=== PATIENT | female | born 1985 | race Caucasian/White ===

== ENCOUNTER 2021-01-11 20:19 | Emergency (ER) | payer OTHER ==
--- OUTSIDE RECORDS SUMMARY | 2021-01-11 20:23 | XMS REPORT | Continuity of Care Document ---
:1985 Author Organization [facility] t Address [address] [place] [address] Care Team Providers Name Role Phone FER Attending Clinician Unavailable DO VITOR MONROE Attending Clinician Unavailable DO VITOR MONROE Admitting Clinician Unavailable Problems This patient has no known problems. Allergies, Adverse Reactions, Alerts This patient has no known allergies or adverse reactions. Medications This patient has no known medications. Procedures This patient has no known procedures. Encounters Start End Encounter Admission Attending Care Care Encounter Source Date/Time Date/Time Type Type Clinicians Facility Department ID 2020-06-30 2020-07-04 Emergency [facility] 064 [id number] 64 [place] 00:00:00 00:00:00 [facility] [address] Results Test Description Test Time Test Comments Results Result Comments Source SARS-CoV-2 (COVID-19) RNA [Presence] in Respiratory sp ecimen by 2020-07-01 01:50:16 LIBAN with probe detection Test Item Value Reference Range Interpretation Comme nts SARS-CoV-2 (COVID-19) RNA [Presence] in Respiratory Not detected No t-Detected specimen by LIBAN with probe detection (test code = 22138-5) Whether patient is employed in a healthcare setting (test code = 64882-7) Whether the patient has symptoms related to condition of interest (test code = 85568-9) Patient was hospitalized because of this condition (test code = 01306-4) Whether the patient was admitted to intensive care unit (ICU) for condition of interest (test code = 35613-7) Whether patient resides in a congregate care setting (test code = 15114-1)
[2021-01-11 21:08] LABS: Absolute Lymphocytes (CBC) 0.9 K/uL (0.7-4.9); Basophils % 0.4 % (0-1.3); Hematocrit 47.6 % (36.0-45.0); Lymphocytes % 10.7 % (15.3-44.8); MPV 10.3 fL (7.6-11.3); RBC Red Blood Cell Count 5.63 M/uL (3.86-4.86)
[2021-01-11 21:21] LABS: Albumin 4.2 g/dL (3.4-5.0); Bilirubin Direct 0.2 mg/dL (0-0.2); Bilirubin Total 0.5 mg/dL (0.2-1.0); Potassium 3.8 mmol/L (3.5-5.1); Protein, Total 7.5 g/dL (6.4-8.2)
[2021-01-11] MEDS ORDERED: ONDANSETRON 4 MG/2 ML VIAL ONE ×2 (21:21→23:38)
[2021-01-11] MEDS ORDERED: MORPHINE 4 MG/ML SYR ONE (21:21)
[2021-01-11] MEDS ORDERED: NA CHLORIDE 0.9% 1,000 ML ONE (21:21)
[2021-01-11 22:38] LABS: Urine Blood Negative (Negative); Urine Glucose Negative (Negative); Urine Protein Negative (Negative); Urine Specific Gravity >=1.030 (1.005-1.030); Urine pH 5.5 (5.0-7.0)
[2021-01-11 22:40] LABS: Urine Specific Gravity/Preg >1.030 (1.005-1.030)
[2021-01-11 22:57] LABS: Urine Bacteria >50 /HPF (<20); Urine Mucus HEAVY /HPF (NONE SEEN); Urine RBC <5 /HPF (NONE SEEN)
[2021-01-11] MEDS ORDERED: CEFTRIAXONE 1000 MG/VIAL ONE (23:29)
[2021-01-11] MEDS ORDERED: FENTANYL CITR 100 MCG/2 ML ONE (23:38)
--- NOTE | 2021-01-12 00:08 | EDPHYS ---
Physician Documentation [facility] Name: Marta Perez Age: 35 yrs Sex: Female : 1985 Arrival Date: 01/11/2021 Time: 20:26 Bed 20 Private MD: ED Physician Sher Mcclendon HPI: 01/11 22:59 This 35 yrs old Female presents to ER via Wheelchair with complaints of Inability To kb Void. 22:59 The patient presents with abdominal pain that is diffuse. Onset: The symptoms/episode kb began/occurred 3 week(s) ago. The symptoms do not radiate. Associated signs and symptoms: Pertinent positives: nausea and vomiting, decreased urination, Pertinent negatives: fever. The symptoms are described as intermittent. Modifying factors: The symptoms are alleviated by nothing, the symptoms are aggravated by nothing. Severity of pain: At its worst the pain was moderate in the emergency department the pain is unchanged. The patient has not experienced similar symptoms in the past. The patient has not recently seen a physician. Pt reports she developed left flank pain 3 weeks ago that has been intermittent with abd pain. States she has had nausea and vomiting for 2 days and now gets dizzy when she stands. unable to tolerate po intake. Decreased urination. 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 - Social history:: Smoking status: Patient/guardian denies using tobacco. ROS: 22:58 Constitutional: Negative for fever, chills, and weight loss. kb 22:58 Abdomen/GI: Positive for abdominal pain, nausea and vomiting, Negative for diarrhea. 22:58 Back: Positive for flank pain, on the left. 22:58 : Positive for small amounts. 22:58 All other systems are negative. Exam: 22:58 Constitutional: This is a well developed, well nourished patient who is awake, alert, kb and in no acute distress. Head/Face: Normocephalic, atraumatic. ENT: Moist Mucous membranes Respiratory: Respirations even and unlabored. No increased work of breathing, no retractions or nasal flaring. Skin: Warm, dry with normal turgor. Normal color. MS/ Extremity: Pulses equal, no cyanosis. Neurovascular intact. Full, normal range of motion. Neuro: Awake and alert, GCS 15, oriented to person, place, time, and situation. Moves all extremities. Normal gait. Psych: Awake, alert, with orientation to person, place and time. Behavior, mood, and affect are within normal limits. 22:58 Abdomen/GI: Inspection: abdomen appears normal, Bowel sounds: normal, in all quadrants, Palpation: soft, in all quadrants, mild abdominal tenderness, in all quadrants. 22:58 Back: CVA tenderness, that is moderate, is noted on the left. Vital Signs: 20:29 Pulse 105; Resp 18; Temp 97.0; Pulse Ox 100% on R/A; Weight 56.7 kg (R); Height 5 ft. 0 aj1 in. (152.40 cm) (R); Pain 10/10; 21:07 BP 123 / 91 Supine; Pulse 82; Resp 18 S; Pulse Ox 99% on R/A; cc4 21:10 BP 132 / 104 Sitting; Pulse 111; Resp 22 S; Pulse Ox 99% on R/A; cc4 21:12 BP 101 / 89 Standing; Pulse 109; Resp 20 S; Pulse Ox 99% on R/A; cc4 21:45 BP 125 / 95; Pulse 70; Resp 20 S; Pulse Ox 100% on R/A; cc4 23:15 BP 124 / 79; Pulse 81; Resp 18 S; Pulse Ox 100% on R/A; cc4 01/12 00:15 BP 109 / 83; Pulse 87; Resp 18 S; Temp 98.2(O); Pulse Ox 98% on R/A; cc4 01/11 20:29 Body Mass Index 24.41 (56.70 kg, 152.40 cm) aj1 MDM: 01/11 20:38 Patient medically screened. kb 22:58 Data reviewed: vital signs, nurses notes. Data interpreted: Pulse oximetry: on room air kb is 99 %. Interpretation: normal. 01/12 00:06 Counseling: I had a detailed discussion with the patient and/or guardian regarding: the kb historical points, exam findings, and any diagnostic results supporting the discharge/admit diagnosis, lab results, radiology results, the need for outpatient follow up, a family practitioner, to return to the emergency department if symptoms worsen or persist or if there are any questions or concerns that arise at home. 01/11 20:38 Order name: Basic Metabolic Panel 01/11 20:38 Order name: CBC with Diff; Complete Time: 21:24 kb 01/11 20:38 Order name: Hepatic Function; Complete Time: 21:24 kb 01/11 20:38 Order name: Lipase; Complete Time: 21:24 kb 01/11 20:38 Order name: Basic Metabolic Panel; Complete Time: 21:24 EDCA 01/11 20:39 Order name: Urine Microscopic Only; Complete Time: 23:01 kb 01/11 21:01 Order name: CT Abd/Pelvis - IV Contrast Only 01/11 22:37 Order name: Urine Dipstick-Ancillary; Complete Time: 22:40 EDCA 01/11 22:38 Order name: Urine --Ancillary (enter results) 2 01/11 22:38 Order name: Urine --Ancillary; Complete Time: 22:51 EDMS 01/11 22:58 Order name: Urine Culture [facility] 01/11 20:38 Order name: IV Saline Lock; Complete Time: 20:59 kb 01/11 20:38 Order name: Labs collected and sent; Complete Time: 20:59 kb 01/11 20:39 Order name: Urine Dipstick-Ancillary (obtain specimen); Complete Time: 22:37 kb 01/11 20:39 Order name: Urine Test (obtain specimen); Complete Time: 22:37 kb 01/11 20:39 Order name: Orthostatics; Complete Time: 21:16 kb 01/12 00:05 Order name: PO challenge; Complete Time: 00:06 kb Administered Medications: 01/11 21:26 Drug: NS 0.9% 1000 ml Route: IV; Rate: 1000 ml; Site: right antecubital; cc4 23:35 Follow up: IV Status: Completed infusion; IV Intake: 1000ml cc4 :26 Drug: Zofran (Ondansetron) 4 mg Route: IVP; Site: right antecubital; cc4 22:00 Follow up: Response: No adverse reaction; Nausea is decreased cc4 21:28 Drug: morphine 4 mg Route: IVP; Site: right antecubital; cc4 22:00 Follow up: Response: No adverse reaction; Pain is decreased cc4 23:35 Drug: Rocephin (cefTRIAXone) 1 grams Route: IV; Rate: calculated rate; Site: right cc4 antecubital; 01/12 00:00 Follow up: Response: No adverse reaction cc4 01/11 23:45 Drug: fentaNYL (PF) 25 mcg Route: IVP; Site: right antecubital; cc4 01/12 00:20 Follow up: Response: No adverse reaction; Pain is decreased cc4 01/11 23:45 Drug: Zofran (Ondansetron) 4 mg Route: IVP; Site: right antecubital; cc4 01/12 00:20 Follow up: Response: No adverse reaction; Nausea is decreased cc4 Disposition: 02:25 Co-signature as Attending Physician, Sher Mcclendon MD. [facility] Disposition Summary: 01/12/21 00:06 Discharge Ordered Location: Home kb Condition: Stable kb Diagnosis - Other ovarian cysts kb - UTI/ Urinary tract infection, site not specified kb - Constipation kb Followup: kb - With: Emergency Department - When: As needed - Reason: Worsening of condition Followup: kb - With: Private Physician - When: 2 - 3 days - Reason: Recheck today's complaints, Continuance of care, Re-evaluation by your physician Discharge Instructions: - Discharge Summary Sheet kb - Constipation, Adult, [id number]-[id number] kb - Urinary Tract Infection, Adult, [id number] kb - Ovarian Cyst, [id number] kb Forms: - Medication Reconciliation Form kb - Thank You Letter kb - Antibiotic Education kb - Prescription Opioid Use kb Prescriptions: - Augmentin 875-125 mg Oral Tablet - take 1 tablet by ORAL route every 12 hours for 10 days; 20 tablet; Refills: 0, kb Product Selection Permitted - Zofran 4 mg Oral Tablet - take 1 tablet by ORAL route every 6 hours As needed; 20 tablet; Refills: 0, kb Product Selection Permitted Signatures: Dispatcher [employer] Valeria England FNP-C FNP-Violet Wylie RN RN 1 Sher Mcclendon MD MD 7 Nikolai, Daniella, RN RN cc4
--- NOTE | 2021-01-12 00:08 | ER ---
Nurse's Notes [facility] Name: Marta Perez Age: 35 yrs Sex: Female : 1985 Arrival Date: 01/11/2021 Time: 20: Bed 20 Private MD: Diagnosis: Other ovarian cysts;UTI/ Urinary tract infection, site not specified;Constipation Presentation: 01/11 20:29 Chief complaint: Patient states: "I've been to the emergency room twice recently, I've aj1 been diagnosed with kidney stones and cysts on my ovaries, but now I'm not peeing very much, and I'm dizzy and I'm vomiting." Patient also reports lower abdominal pain. Denies fever. Coronavirus screen: Vaccine status: Patient reports being unvaccinated. Ebola Screen: Patient denies travel to an Ebola-affected area in the 21 days before illness onset. Initial Sepsis Screen: Does the patient meet any 2 criteria? HR > 90 bpm. No. Patient's initial sepsis screen is negative. Does the patient have a suspected source of infection? Yes: Acute abdominal pain. Risk Assessment: Do you want to hurt yourself or someone else? Patient reports no desire to harm self or others. Onset of symptoms was 2020. 20:29 Method Of Arrival: Wheelchair aj1 20:29 Acuity: SANDRA 3 aj1 Triage Assessment: 20:38 General: Appears in no apparent distress. uncomfortable, Behavior is calm, cooperative, aj1 appropriate for age. Pain: Complains of pain in right lower quadrant and left lower quadrant Pain currently is 10 out of 10 on a pain scale. Neuro: Level of Consciousness is awake, alert, obeys commands, Oriented to person, place, time, situation. Cardiovascular: Patient's skin is warm and dry. Respiratory: Airway is patent Respiratory effort is even, unlabored, Respiratory pattern is regular, symmetrical. 01/12 00:20 General: Appears. cc4 02:09 General: Behavior is. 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 - Social history:: Smoking status: Patient/guardian denies using tobacco. Screenin:30 Abuse screen: Denies threats or abuse. Nutritional screening: No deficits noted. cc4 Tuberculosis screening: No symptoms or risk factors identified. Fall Risk None identified. Assessment: 20:30 General: Appears distressed, uncomfortable, Behavior is cooperative, anxious. Pain: cc4 Complains of pain in abdomen and left lower quadrant and right lower quadrant. Neuro: No deficits noted. Level of Consciousness is awake, alert, obeys commands, Oriented to person, place, time, situation. Cardiovascular: Denies chest pain. Respiratory: No deficits noted. Airway is patent Respiratory effort is even, unlabored, Respiratory pattern is regular, symmetrical. GI: Abdomen is flat, non-distended, Bowel sounds present X 4 quads. Abd is soft X 4 quads Abdomen is tender to palpation in right lower quadrant and left lower quadrant Reports intolerance of fluids, intolerance of food, nausea. : Reports inability to void, since 01/11/2021. EENT: No signs and/or symptoms were reported regarding the EENT system. Derm: No deficits noted. Skin is intact, is healthy with good turgor. Musculoskeletal: No deficits noted. Capillary refill < 3 seconds, Range of motion: intact in all extremities, Geraldine Horn NP in to see with orders recieved. 20:30 Pain: Pain currently is 10 out of 10 on a pain scale. cc4 20:55 Reassessment: No changes from previously documented assessment. # 20 g angiocath cc4 inserted right AC x 1 attempt \\T\\ converted to saline lock with blood drawn drawn \\T\\ sent to lab; reports inability to void. 21:07 Reassessment: Orthostatics vitals obtained with Geraldine Horn NP notified. cc4 21:26 Reassessment: No changes from previously documented assessment. IV NS hung to right AC cc4 saline lock \\T\\ infusing \\T\\ bolus rate with no s/sx's of infiltration; Zofran 4 mg \\T\\ Morphine 4 mg give slow IVP as ordered for nausea \\T\\ pain. 22:00 Reassessment: Reports decreasing pain to 5/10 on pain scale; reports little change in cc4 nausea; encouraged to obtain urine specimen with pt reporting that she can't go at present time. 22:40 Reassessment: Urine specimen obtained \\T\\ sent to lab with dipstick done \\T\\ negative HCG; cc 4 CT notified. 22:45 Reassessment: To CT via stretcher. cc4 23:00 Reassessment: Returned from CT via stretcher. cc4 23:35 Reassessment: Rocephin 1 g given slow IVP; c/o increasing pain \\T\\ nausea with K. cc4 GILDA Horn notified. 23:45 Reassessment: Reports abd. pain 9/10 on pain scale with c/o nausea; Fentanyl 25 mcg \\T\\ cc4 Zofran 4 mg given slow IVP as ordered. 01/12 00:20 Reassessment: Patient states feeling better. Patient states symptoms have improved. cc4 Vital Signs: 01/11 20:29 Pulse 105; Resp 18; Temp 97.0; Pulse Ox 100% on R/A; Weight 56.7 kg (R); Height 5 ft. 0 aj1 in. (152.40 cm) (R); Pain 10/10; 21:07 BP 123 / 91 Supine; Pulse 82; Resp 18 S; Pulse Ox 99% on R/A; cc4 21:10 BP 132 / 104 Sitting; Pulse 111; Resp 22 S; Pulse Ox 99% on R/A; cc4 21:12 BP 101 / 89 Standing; Pulse 109; Resp 20 S; Pulse Ox 99% on R/A; cc4 21:45 BP 125 / 95; Pulse 70; Resp 20 S; Pulse Ox 100% on R/A; cc4 23:15 BP 124 / 79; Pulse 81; Resp 18 S; Pulse Ox 100% on R/A; cc4 01/12 00:15 BP 109 / 83; Pulse 87; Resp 18 S; Temp 98.2(O); Pulse Ox 98% on R/A; cc4 01/11 20:29 Body Mass Index 24.41 (56.70 kg, 152.40 cm) [facility] ED Course: 01/11 20:26 Patient arrived in ED. wm 20:30 Bed in low position. Call light in reach. Side rails up X 1. cc4 20:32 Valeria Horn F[facility]-C [facility]. kb 20:32 Sher Mcclendon MD is Attending Physician. kb 20:33 Triage completed. aj1 20:38 Arm band placed on Patient placed in an exam room. aj1 20:58 Inserted saline lock: 20 gauge in right antecubital area, using aseptic technique. oe Blood collected. 21:08 Daniella Menchaca, RN is Primary Nurse. cc4 21:08 CT Abd/Pelvis - IV Contrast Only Sent. cc4 21:08 Basic Metabolic Panel Sent. cc4 21:08 CBC with Diff Sent. cc4 21:09 Hepatic Function Sent. cc4 21:09 Lipase Sent. cc4 21:09 Basic Metabolic Panel Sent. cc4 22:37 Urine Microscopic Only Sent. cc4 23:02 CT Abd/Pelvis - IV Contrast Only In Process Unspecified. EDMS 23:27 Urine Culture Sent. cc4 01/12 00:19 Urine --Ancillary (enter results) Sent. cc4 00:20 No provider procedures requiring assistance completed. cc4 00:20 IV discontinued, intact, bleeding controlled, No redness/swelling at site. Pressure cc4 dressing applied. Administered Medications: 01/11 21:26 Drug: NS 0.9% 1000 ml Route: IV; Rate: 1000 ml; Site: right antecubital; cc4 23:35 Follow up: IV Status: Completed infusion; IV Intake: 1000ml cc4 21:26 Drug: Zofran (Ondansetron) 4 mg Route: IVP; Site: right antecubital; cc4 22:00 Follow up: Response: No adverse reaction; Nausea is decreased cc4 21:28 Drug: morphine 4 mg Route: IVP; Site: right antecubital; cc4 22:00 Follow up: Response: No adverse reaction; Pain is decreased cc4 23:35 Drug: Rocephin (cefTRIAXone) 1 grams Route: IV; Rate: calculated rate; Site: right cc4 antecubital; 01/12 00:00 Follow up: Response: No adverse reaction cc4 01/11 23:45 Drug: fentaNYL (PF) 25 mcg Route: IVP; Site: right antecubital; cc4 01/12 00:20 Follow up: Response: No adverse reaction; Pain is decreased cc4 01/11 23:45 Drug: Zofran (Ondansetron) 4 mg Route: IVP; Site: right antecubital; cc4 01/12 00:20 Follow up: Response: No adverse reaction; Nausea is decreased cc4 Intake: 01/11 23:35 IV: 1000ml; Total: 1000ml. cc4 Outcome: 01/12 00:06 Discharge ordered by . trever 00:20 Discharged to home ambulatory. cc4 00:20 Condition: improved 00:20 Discharge instructions given to patient, Instructed on discharge instructions, follow up and referral plans. medication usage, Demonstrated understanding of instructions, follow-up care, medications. 00:49 Patient left the ED. cc4 Signatures: Dispatcher [employer] EDMS Valeria Horn, JANA-C PARENT EDUCATOR-Violet Wylie RN RN aj1 Raf Dempsey Wendy wm Cooper, Christie, RN RN cc4 Corrections: (The following items were deleted from the chart) 01:01/11 20:30 General: Appears distressed, uncomfortable, Behavior is cooperative, cc4 anxious, cc4
[2021-01-12 01:04] VITALS: TEMP 97
[2021-01-12 01:09] VITALS: O2SAT 99
[2021-01-12 01:12] VITALS: BP 101/89
--- NOTE | 2021-01-12 15:29 | RAD REPORT ---
EXAM DESCRIPTION: CT - Abdomen Pelvis W Contrast - 01/12/2021 3:32 am CLINICAL HISTORY: 35 years, Female, ABD PAIN COMPARISON: None. TECHNIQUE: Contrast-enhanced images of the abdomen and pelvis were performed utilizing 5 mm slice th ickness at 5 mm interval reconstruction from the lung bases to the ischial tuberosities after the adm inistration of IV contrast. In addition multiplanar reformats in the coronal and sagittal plane were obtained and reviewed. This exam was performed according to our departmental dose-optimization protocol, which includes auto mated exposure control, adjustment of the mA and/or kV according to patient size and/or use of iterat sami reconstruction technique. FINDINGS: The lung bases demonstrate to be clear. The liver demonstrate decreased attenuation corresponding to mild fatty infiltration. Otherwise liver , gallbladder, pancreas, spleen and adrenal glands demonstrate to be unremarkable, no focal lesions a re noted. The kidneys demonstrate normal uptake of contrast media. No evidence for nephrolithiasis and/or hydro nephrosis. Grossly the unopacified stomach, small bowel and large bowel demonstrate to be within normal limits. There is no evidence for bowel dilatation/or free air. Fecal residue throughout the large bowel rebecca ecially within the rectum suggest constipation/impaction. The appendix is normal. The urinary bladder demonstrate to be unremarkable. The uterus is unremarkable. There is a left adn exal cystic structure measuring 3.1 x 2.5 cm on axial image 67/91. The aorta demonstrate to be norm al. There is no retroperitoneal lymphadenopathy. There is no evidence for ascites. The rest of the soft tissue and bony structures are within normal limits. IMPRESSION: Fecal residue throughout the large bowel especially within the rectum suggest constipati on/impaction. 3.1 x 2.5 cm left adnexal cystic structure. Mild fatty infiltration of the liver. Electronically signed by: Anurag Rico MD 01/11/2021 11:21 PM WEB CONTENT WRITER Due to temporary technical issues with the PACS/Fluency reporting system, reports are being signed by the in house radiologists without review as a courtesy to insure prompt reporting. The interpreting radiologist is fully responsible for the content of the report.
== END 2021-01-12 00:49 | disposition home or self-care (01) ==
LOC: ER 20:19
DX: N39.0 Urinary tract infection, site not specified (principal); N83.299 Other ovarian cyst, unspecified side; K59.00 Constipation, unspecified
CPT/HCPCS: 96361; 87088; 85025; 87086; 80048; 36415; 81025; 80076; 83690; 74177; 96375; 96374; 99284; Q9967; J3010; J7030; J2405 ×2; 81003; 81015

== ENCOUNTER 2021-11-07 23:05 | Emergency (ER) | payer OTHER, SELFPAY ==
--- OUTSIDE RECORDS SUMMARY | 2021-11-07 23:07 | XMS REPORT | Continuity of Care Document ---
:1985 Author Organization [facility] t Address [address] [place] [address] Care Team Providers Name Role Phone Baeza Bobby LORA Primary Care Physician DINA_PASHACBMANSI_Gayle_RA Attending Clinician Unavailable KODY MONROE Attending Clinician Unavailable DO KODY MONROE Attending Clinician Unavailable JEREMICBMANSI_Gayle_RA Admitting Clinician Unavailable DO KODY MONROE Admitting Clinician Unavailable Payers Payer Name Policy Type Policy Number Effective Date Expiration Date [facility] [id number] 2020 00:00:00 Problems Condition Condition Condition Status Onset Resolution Last Treating Co mments Source Name Details Category Date Date Treatment Clinician Date Kidney Kidney Disease Active 2015-02 [facility] 00 l Left Left Disease Active [facility] ureteral ureteral [facility] 00 l Generalize Generaliz Problem Active 2019-05-14 [facility] d anxiety ed anxiety 02:45:44 l disorder disorder Kyle n Active Problem 05/14/2019 [facility] Auditory Auditory Problem Active 2019-05-14 [facility] hallucinat hallucinat 02:45:44 l ion ion Active Kyle n Problem 05/14/2019 [facility] Allergies, Adverse Reactions, Alerts This patient has no known allergies or adverse reactions. Family History Family Member Diagnosis Comments Start Date Stop Date Source Natural father Cancer [facility] Natural mother No Known Problems Met [facility] Social History Social Habit Start Date Stop Date Quantity Comments Source History [facility] History of Current smoker [facility] History [facility] Drinks Alcohol intake 2020-06-30 2020-06-30 Current [facility] 00:00:00 00:00:00 non-drinker of Hospital alcohol (finding) History SDIN 2019-03-08 2019-03-08 1 [facility] Frequency 00:00:00 00:00:00 Hospita l Tobacco use and 2019-03-07 2019-03-07 Smokeless tobacco [facility] exposure 00[facility]00:00 00:00:00 non-user Hospital Sex Assigned At [birth year] [facility] Smoking Status Start Date Stop Date Source Ex-smoker 2019-03-07 00:00:00 2019-03-07 [facility] Medications Ordered Filled Start Stop Current Ordering Indication Dosage Frequency Signature Comments Components Source Medication Medication Date Date Medication? Clinician (SIG) Name Name Lexapro Yes Van Baeza 1 tab(s) Me moria 2-06 l 03:45: Xanax 2017-02 Yes Van Baeza 1 tab(s) Crow darinel 2-31 l 00:00: Zyprexa Yes Van Baeza 1 tab(s) Me moria 9-06 l 00:00: PNV 2015-02 Yes 1{tbl} QD Take 1 [facility] [id number]-i 1-07 tablet by jamie bender 09:37: mouth Hospi ta l-FA 29 mg 18 daily. l iron- 1 mg tablet per tablet sertraline 2015-02 Yes [facility] (ZOLOFT) 50 0-27 st MG tablet 00:00: Hospita 00 l ibuprofen 2015-02 Yes TK 1 T PO Met [facility] (ADVIL,MOTR 0-[address] IN) 800 MG 00:00: Hospita tablet 00 l escitalopra Yes TK 1 T PO M ethodi m (LEXAPRO) 9-[address] 10 MG 00:00: Hospita tablet 00 l HYDROcodone Yes TK 1 T PO M [facility]i -acetaminop 8-05 Q [address] hen (NORCO) 00:00: PRN P Hospi ta 5-325 mg 00 l per tablet tamsulosin Yes [facility] (FLOMAX) 08-28 st 0.4 mg 00:00: Hospita capsule,ext 00 l ended release 24hr GENERLAC 10 Yes [facility] gram/[address] solution 00:00: Hospita 00 l Procedures This patient has no known procedures. Plan of Care Planned Activity Planned Date Details Comments Source Future Scheduled 2021-10-17 HE[facility]ITIS B [facility] 07:10:57 VACCINES (1 of 3 - 3-dose series) [code = HEPATITIS B VACCINES (1 of 3 - 3-dose series)] Future Scheduled 2021-10-17 COVID-19 VACCINE [facility] Test 07:10:57 (#1) [code = COVID-19 VACCINE (#1)] Future Scheduled 2021-10-17 Hepatitis C [facility] Test 07:10:57 screening (procedure) [code = 822710839] Future Scheduled 2021-10-17 Screening for [facility] Test 07:10:57 malignant neoplasm of cervix (procedure) [code = 339125793] Future Scheduled 2021-10-17 INFLUENZA VACCINE [facility] Test 07:10:57 [code = INFLUENZA VACCINE] Encounters Start End Encounter Admission Attending Care Care Encounter Source Date/Time Date/Time Type Type Clinicians Facility Department ID 2021-11-07 Outpatient [id number] [facility] 23:07:28 [id number] [place] [id number] 2021-07-23 2021-07-23 Outpatient [id number] [id number] PRIV [id number] [facility] 03:23:00 03:23:00 jena_ [id number] Medica l 2020-06-30 2020-07-04 Emergency [place] [id number] [place] 00:00:00 00:00:[address] [id number] 2019-03-08 2019-03-08 Outpatient [facility] [id number] [facility] 08:37:00 08:37:00 [facility] [place] 2019-03-04 2019-03-04 Outpatient [facility] [id number] [facility] 14:03:00 14:03:00 [facility] [place] 2018-05-25 2018-05-25 Outpatient [facility] [id number] [facility] 11:04:00 11:04:00 [facility] [place] 2018-05-15 2018-05-15 Outpatient [facility] [id number] [facility] 16:02:00 16:02:00 [facility] [place] 2017-08-01 2017-08-01 Outpatient [facility] [id number] [facility] 10:25:00 10:25:00 [facility] [place] 2017-07-30 2017-07-30 Outpatient [facility] [id number] [facility] 20:36:00 20:36:00 Medical [facility] [place] 2017-07-30 2017-07-30 Outpatient [facility] [id number] [facility] 20:36:00 20:36:00 Medical [facility] [place] 2017-07-29 2017-07-29 Outpatient [facility] [id number] [facility] 20:56:00 20:56:00 [facility] [place] 2017-07-29 2017-07-29 Outpatient [facility] [id number] [facility] 17:14:00 17:14:00 [facility] [place] Results Test Description Test Time Test Comments Results Result Comments Source SARS-CoV-2 (COVID-19) RNA [Presence] in Respiratory sp ecimen by 2020-07-01 01:50:16 LIBAN with probe detection Test Item Value Reference Range Interpretation Comme nts SARS-CoV-2 (COVID-19) RNA [Presence] in Respiratory Not detected No t-Detected specimen by LIBAN with probe detection (test code = 55197-1) Whether patient is employed in a healthcare setting (test code = 95853-6) Whether the patient has symptoms related to condition of interest (test code = 57387-8) Patient was hospitalized because of this condition (test code = 80967-8) Whether the patient was admitted to intensive care unit (ICU) for condition of interest (test code = 41233-5) Whether patient resides in a congregate care setting (test code = 03291-0)
[2021-11-08] MEDS ORDERED: KETOROLAC 30 MG/ML INJ ONE (00:35)
[2021-11-08] MEDS ORDERED: NA CHLORIDE 0.9% 1,000 ML ONE (00:35)
[2021-11-08 00:41] LABS: Urine Blood 2+ (Negative); Urine Glucose Negative (Negative); Urine Protein 1+ (Negative); Urine Specific Gravity >=1.030 (1.005-1.030)
[2021-11-08 00:55] LABS: Absolute Lymphocytes (CBC) 1.9 K/uL (0.7-4.9); Hematocrit 42.2 % (36.0-45.0); Lymphocytes % 24.3 % (15.3-44.8); MCV 82.3 fL (80-100); MPV 9.7 fL (7.6-11.3); RBC Red Blood Cell Count 5.12 M/uL (3.86-4.86)
[2021-11-08 00:55] LABS: Urine Bacteria 20-50 /HPF (<20); Urine Mucus 2+ /HPF (None Seen); Urine RBC >50 /HPF (None Seen)
[2021-11-08 01:13] LABS: Bilirubin Total 0.2 mg/dL (0.2-1.0); Potassium 3.9 mmol/L (3.5-5.1); Protein, Total 7.1 g/dL (6.4-8.2)
--- NOTE | 2021-11-08 01:52 | ER ---
Nurse's Notes [facility] Name: Marta Perez Age: 36 yrs Sex: Female : 1985 Arrival Date: 11/07/2021 Time: 23:09 Bed 25 Private MD: Diagnosis: UTI/ Urinary tract infection, site not specified;Hydronephrosis with renal and ureteral calculous obstruction Presentation: 11/07 23:13 Chief complaint: Patient states: Reports having kidney stones multiple times, surgery ld1 to remove kidney stone in 2013. C/O pain when urinating - reports stabbing pain "like something is trying to pass.". Coronavirus screen: At this time, the client does not indicate any symptoms associated with coronavirus-19. Ebola Screen: No symptoms or risks identified at this time. Initial Sepsis Screen: Does the patient meet any 2 criteria? No. Patient's initial sepsis screen is negative. Does the patient have a suspected source of infection? No. Patient's initial sepsis screen is negative. Risk Assessment: Do you want to hurt yourself or someone else? Patient reports no desire to harm self or others. Onset of symptoms was November 07, 2021. 23:13 Method Of Arrival: Ambulatory ld1 23:13 Acuity: SANDRA 3 ld1 Triage Assessment: 23:14 General: Appears in no apparent distress. uncomfortable, Behavior is calm, cooperative, ld1 appropriate for age. Pain: Complains of pain in groin Pain does not radiate. Pain currently is 9 out of 10 on a pain scale. Quality of pain is described as aching, sharp, shooting, throbbing. EENT: No signs and/or symptoms were reported regarding the EENT system. Neuro: Level of Consciousness is awake, alert, obeys commands, Oriented to person, place, time, situation. Cardiovascular: Capillary refill < 3 seconds Patient's skin is warm and dry. Respiratory: Airway is patent Respiratory effort is even, unlabored. GI: Abdomen is flat, non-distended. : Reports pain with urination. Derm: No signs and/or symptoms reported regarding the dermatologic system. Musculoskeletal: No signs and/or symptoms reported regarding the musculoskeletal system. 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 - Social history:: Smoking status: Patient denies any tobacco usage or history of. Patient/guardian denies using alcohol. Screenin:55 Abuse screen: Denies threats or abuse. Denies injuries from another. Nutritional ha1 screening: No deficits noted. Tuberculosis screening: No symptoms or risk factors identified. Fall Risk None identified. Assessment: 11/08 00:07 General: Appears uncomfortable, Behavior is calm, cooperative. Pain: Complains of pain kd3 in pelvis and groin. Neuro: Level of Consciousness is awake, alert, obeys commands, Oriented to person, place, time, situation. Respiratory: Airway is patent Trachea midline Respiratory effort is even, unlabored, Respiratory pattern is regular, symmetrical. GI: Bowel sounds present X 4 quads. Abd is soft and non tender X 4 quads. 02:00 Reassessment: Patient and/or family updated on plan of care and expected duration. Pain ha1 level reassessed. Patient is alert, oriented x 3, equal unlabored respirations, skin warm/dry/pink. pain 10/10. Vital Signs: 11/07 23:13 BP 137 / 87; Pulse 104; Resp 18; Temp 97.9(TE); Pulse Ox 99% on R/A; Weight 61.23 kg; ld1 Height 5 ft. 0 in. (152.40 cm); Pain 9/10; 23:55 BP 123 / 88; Pulse 80; Resp 15 S; Pulse Ox 100% on R/A; ha1 11/08 02:02 BP 113 / 74; Pulse 72; Resp 17; Pulse Ox 100% on R/A; ha1 03:02 BP 110 / 77; Pulse 75; Resp 18; Pulse Ox 100% on R/A; kd3 11/07 23:13 Body Mass Index 26.37 (61.23 kg, 152.40 cm) ld1 ED Course: 11/07 23:09 Patient arrived in ED. bp1 23:13 Heraclio Fields DO is Attending Physician. ms3 23:14 Triage completed. ld1 23:14 Arm band placed on right wrist. ld1 23:36 Susana Roa, RN is Primary Nurse. ha1 11/08 00:07 No provider procedures requiring assistance completed. kd3 00:59 CT Abd/Pelvis - Without Contrast In Process Unspecified. EDMS 02:52 Mustapha Gill MD is Referral Physician. ms3 03:02 Patient has correct armband on for positive identification. kd3 03:02 IV discontinued, intact, bleeding controlled, No redness/swelling at site. Pressure kd3 dressing applied. Administered Medications: 00:41 Drug: NS 0.9% 1000 ml Route: IV; Rate: 1 bolus; Site: right antecubital; kd3 02:12 Follow up: Response: No adverse reaction; IV Status: Completed infusion; IV Intake: ha1 1000ml 00:41 Drug: Ketorolac 10 mg Route: IVP; Site: right antecubital; kd3 01:20 Follow up: Response: No adverse reaction; Pain is unchanged, physician notified ha1 02:11 Drug: LevaQUIN (levofloxacin) 750 mg Route: PO; ha1 02:53 Follow up: Response: No adverse reaction kd3 02:11 Drug: morphine 4 mg Route: IVP; Infused Over: 4 mins; Site: right antecubital; ha1 02:53 Follow up: Response: Pain is decreased kd3 Medication: 00:08 VIS not applicable for this client. kd3 Intake: 02:12 IV: 1000ml; Total: 1000ml. ha1 Outcome: 01:51 Discharge ordered by MD. ms3 02:52 Discharge ordered by MD. ms3 03:02 Discharged to home ambulatory. kd3 03:02 Condition: stable 03:02 Discharge instructions given to patient, Instructed on discharge instructions, follow up and referral plans. medication usage, Demonstrated understanding of instructions, follow-up care, medications, Prescriptions given X 4. 03:03 Patient left the ED. kd3 Signatures: Dispatcher [employer] EDMS Heraclio Fields DO DO ms3 Ada Velásquez Lauren, RN RN ld1 Melisa Maharaj RN RN kd3 Susana Roa, BORIS RN ha1
--- NOTE | 2021-11-08 01:52 | EDPHYS ---
Physician Documentation [facility] Name: Marta Perez Age: 36 yrs Sex: Female : 1985 Arrival Date: 11/07/2021 Time: 23:09 Bed 25 Private MD: ED Physician Heraclio Fields HPI: 11/08 02:52 This 36 yrs old Female presents to ER via Ambulatory with complaints of Possible Kidney ms3 Stone. 02:52 36-year-old female with past medical history of kidney stones and ovarian cysts ms3 presents for vaginal pain that she states feels like razor blades and rates a 10/10. Patient denies alleviating or inciting factors. Patient denies fevers, chills, nausea, vomiting. Patient denies alleviating or inciting factors.. 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 - Social history:: Smoking status: Patient denies any tobacco usage or history of. Patient/guardian denies using alcohol. ROS: 11/08 02:52 Constitutional: Negative for fever, and chills. Eyes: Negative for injury, pain, ms3 redness, and discharge, ENT: Negative for injury, pain, and discharge, Neck: Negative for injury, pain, and swelling, Cardiovascular: Negative for chest pain, and palpitations. Respiratory: Negative for shortness of breath, cough, wheezing, and pleuritic chest pain, Abdomen/GI: Negative for abdominal pain, nausea, vomiting, diarrhea, and constipation. : Positive for pelvic pain. All other systems are negative. Exam: 02:52 Constitutional: This is a well developed, well nourished patient who is awake, alert, ms3 and in no acute distress. Head/Face: Normocephalic, atraumatic. ENT: Nares patent. No nasal discharge, no septal abnormalities noted. Tympanic membranes are normal and external auditory canals are clear. Oropharynx with no redness, swelling, or masses, exudates, or evidence of obstruction, uvula midline. Mucous membranes moist. Chest/axilla: Normal chest wall appearance and motion. Nontender with no deformity. Cardiovascular: Regular rate and rhythm with a normal S1 and S2. No gallops, murmurs, or rubs. Normal PMI, no JVD. No pulse deficits. Respiratory: Lungs have equal breath sounds bilaterally, clear to auscultation and percussion. No rales, rhonchi or wheezes noted. No increased work of breathing, no retractions or nasal flaring. Abdomen/GI: Soft, non-tender, with normal bowel sounds. No distension or tympany. No guarding or rebound. No evidence of tenderness throughout. Back: No spinal tenderness. No costovertebral tenderness. Full range of motion. Skin: Warm, dry with normal turgor. Normal color with no rashes, no lesions, and no evidence of cellulitis. MS/ Extremity: Pulses equal, no cyanosis. Neurovascular intact. Full, normal range of motion. Neuro: Awake and alert, GCS 15, oriented to person, place, time, and situation. Cranial nerves II-XII grossly intact. Motor strength 5/5 in all extremities. Sensory grossly intact. Cerebellar exam normal. Normal gait. Psych: Awake, alert, with orientation to person, place and time. Behavior, mood, and affect are within normal limits. Vital Signs: 11/07 23:13 BP 137 / 87; Pulse 104; Resp 18; Temp 97.9(TE); Pulse Ox 99% on R/A; Weight 61.23 kg; ld1 Height 5 ft. 0 in. (152.40 cm); Pain 9/10; 23:55 BP 123 / 88; Pulse 80; Resp 15 S; Pulse Ox 100% on R/A; ha1 11/08 02:02 BP 113 / 74; Pulse 72; Resp 17; Pulse Ox 100% on R/A; ha1 03:02 BP 110 / 77; Pulse 75; Resp 18; Pulse Ox 100% on R/A; kd3 11/07 23:13 Body Mass Index 26.37 (61.23 kg, 152.40 cm) ld1 MDM: 00:10 Patient medically screened. ms3 02:52 Data reviewed: vital signs, nurses notes, lab test result(s), radiologic studies, and ms3 as a result, I will discharge patient. Test interpretation: by ED physician or midlevel provider:. Counseling: I had a detailed discussion with the patient and/or guardian regarding: the historical points, exam findings, and any diagnostic results supporting the discharge/admit diagnosis, lab results, radiology results, the need for outpatient follow up, to return to the emergency department if symptoms worsen or persist or if there are any questions or concerns that arise at home. ED course: Discussed positive urine and kidney stone with patient. Patient given prescription for Levaquin. Patient instructed to return for fevers, chills, nausea, vomiting, worsening symptoms, or any other concerns. Patient to follow-up with Dr. Gill in 2 to 3 days. Patient understands and agrees with plan. All questions were answered.. 11/08 00:11 Order name: CBC with Diff; Complete Time: 01:20 ms3 11/08 00:11 Order name: CMP; Complete Time: 01:20 ms3 11/08 00:11 Order name: Lipase; Complete Time: 01:20 ms3 11/08 00:11 Order name: Urine Microscopic Only; Complete Time: 01:20 ms3 11/08 00:42 Order name: Urine Dipstick-Ancillary; Complete Time: 01:20 EDMS 11/08 00:11 Order name: CT Abd/Pelvis - Without Contrast ms3 11/08 00:11 Order name: IV Saline Lock; Complete Time: 00:41 ms3 11/08 00:11 Order name: Labs collected and sent; Complete Time: 00:41 ms3 11/08 00:11 Order name: Urine Dipstick-Ancillary (obtain specimen); Complete Time: 00: ms3 11/08 00:11 Order name: Urine Test (obtain specimen); Complete Time: 00:41 ms3 Administered Medications: 00:41 Drug: NS 0.9% 1000 ml Route: IV; Rate: 1 bolus; Site: right antecubital; kd3 02:12 Follow up: Response: No adverse reaction; IV Status: Completed infusion; IV Intake: ha1 1000ml 00:41 Drug: Ketorolac 10 mg Route: IVP; Site: right antecubital; kd3 01:20 Follow up: Response: No adverse reaction; Pain is unchanged, physician notified ha1 02:11 Drug: LevaQUIN (levofloxacin) 750 mg Route: PO; ha1 02:53 Follow up: Response: No adverse reaction kd3 02:11 Drug: morphine 4 mg Route: IVP; Infused Over: 4 mins; Site: right antecubital; ha1 02:53 Follow up: Response: Pain is decreased kd3 Disposition Summary: 11/08/21 02:52 Discharge Ordered Location: Home(11/08/21 02:52) ms3 Condition: Stable(11/08/21 02:52) ms3 Diagnosis - UTI/ Urinary tract infection, site not specified(11/08/21 02:52) ms3 - Hydronephrosis with renal and ureteral calculous obstruction(11/08/21 02:52) ms3 Followup: ms3 - With: - When: 2 - 3 days - Reason: Recheck today's complaints Discharge Instructions: - Discharge Summary Sheet ms3 - Kidney Stones ms3 - Urinary Tract Infection, Adult ms3 Forms: - Medication Reconciliation Form ms3 - Thank You Letter ms3 - Antibiotic Education ms3 - Prescription Opioid Use ms3 Prescriptions: - Flomax 0.4 mg Oral capsule - take 1 capsule by ORAL route once daily 1/2 hour following the same meal each ms3 day; 15 capsule; Refills: 0, Product Selection Permitted - Ibuprofen 600 mg Oral Tablet - take 1 tablet by ORAL route every 6 hours As needed take with food; 30 tablet; ms3 Refills: 0, Product Selection Permitted - levofloxacin 750 mg Oral Tablet - take 1 tablet by ORAL route once daily; 7 tablet; Refills: 0, Product Selection ms3 Permitted - Tylenol-Codeine #3 300 mg-30 mg Oral - take 1 tablet by ORAL route every 4 hours for 3 days; 18 tablet; Refills: 0, ms3 Product Selection Permitted Signatures: Dispatcher [employer] EDMS Heraclio Fields DO DO ms3 Tracey Leslie RN RN ld1 Melisa Maharaj RN RN kd3 Susana Roa RN RN ha1 Corrections: (The following items were deleted from the chart) 01:51 01:51 Home ms3 ms3 01:51 01:51 Stable ms3 ms3 01:51 01:51 UTI/ Urinary tract infection, site not specified ms3 ms3 01:51 01:51 Hydronephrosis with renal and ureteral calculous obstruction ms3 ms3
[2021-11-08] MEDS ORDERED: MORPHINE 4 MG/ML SYR ONE (02:07)
[2021-11-08] MEDS ORDERED: levoFLOXacin 250 MG TAB ONE (02:08)
--- NOTE | 2021-11-08 15:31 | RAD REPORT ---
EXAM DESCRIPTION: Abdomen Pelvis Wo Contrast CLINICAL HISTORY: 36 years Female Kidney stone pain TECHNIQUE: Contiguous axial images obtained through the abdomen and pelvis without IV contrast. Mayra nal and sagittal reformatted images provided. This CT exam was performed according to our departmental dose-optimization program, which includes on e or more of the following dose reduction techniques: automated exposure control, adjustment of the m A and/or kV according to patient size, and/or use of iterative reconstruction technique. COMPARISON: 01/11/2021 FINDINGS: There is slight left hydroureteronephrosis due to a 3 mm calculus at the left vesicoureter al junction. There are punctate nonobstructing intrarenal calculi bilaterally. No other ureteral calc armond. No right-sided hydronephrosis. The lung bases, unenhanced liver, biliary tree, gallbladder, pancreas, spleen, adrenal glands, uterus , ovaries, and urinary bladder are normal. Trace free fluid in the cul-de-sac likely physiologic. There is no bowel inflammation, obstruction, f ree intraperitoneal air, or abdominal ascites. The appendix is normal. Slight sclerosis of the anterior superior aspects of both femoral heads concerning for early avascula r necrosis. No articular surface collapse. No visualized acute fracture. IMPRESSION: Slight left hydroureteronephrosis due to a 3 mm calculus at the left vesicoureteral junc tion. Trace free fluid in the cul-de-sac likely physiologic. No adnexal mass. Normal appendix. 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 Electronically signed by: Gypsy Elkins MD 11/08/2021 1:25 AM CDT Due to temporary technical issues with the PACS/Fluency reporting system, reports are being signed by the in house radiologists without review as a courtesy to insure prompt reporting. The interpreting radiologist is fully responsible for the content of the report.
[2021-11-09 20:44] VITALS: TEMP 97.9
[2021-11-09 20:46] VITALS: O2SAT 100
[2021-11-09 20:51] VITALS: BP 110/77
== END 2021-11-08 03:03 | disposition home or self-care (01) ==
LOC: ER 23:05
DX: N39.0 Urinary tract infection, site not specified (principal); N13.2 Hydronephrosis with renal and ureteral calculous obstruction; Z87.442 Personal history of urinary calculi
CPT/HCPCS: 36415; 74176; 80053; 81003; 81015; 83690; 85025; 96361; 96374; 96375; 99283; J7030

== ENCOUNTER 2022-01-19 07:42 | Emergency (ER) | payer SELFPAY ==
--- OUTSIDE RECORDS SUMMARY | 2022-01-19 07:47 | XMS REPORT | Continuity of Care Document ---
:1985 Author Organization [facility] t Address [address] [place] [address] Care Team Providers Name Role Phone Baeza DO Bobby Fermin Primary Care Physician [email or web address] Attending Clinician Unavailable KODY MONROE Attending Clinician Unavailable DO KODY MONROE Attending Clinician Unavailable DINA_[email or web address]_RA Admitting Clinician Unavailable DO KODY MONROE Admitting Clinician Unavailable Payers Payer Name Policy Type Policy Number Effective Date Expiration Date [facility]iel [facility] [id number] 2020 00:00:00 Problems Condition Condition Condition Status Onset Resolution Last Treating Co mments Source Name Details Category Date Date Treatment Clinician Date Kidney Kidney Disease Active 2015-02 [facility]: Hospita 00 l Left Left [...] Date Stop Date Source Natural father Cancer [facility] Natural mother No Known Problems Met [facility] Social History Social Habit Start Date Stop Date Quantity Comments Source History SDOH [facility] Binge [facility] History SDOH [facility] Alcohol Std Hospital Drinks History of Current smoker [facility] tobacco use Hospital Alcohol intake 2020-06-30 2020-06-30 Current [facility] 00:00:00 00:00:00 non-drinker of Hospital alcohol (finding) History SDOH 2019-03-08 2019-03-08 1 [facility] Alcohol Frequency 00:00:00 00:00:00 Hospita l Tobacco use and 2019-03-07 2019-03-07 Smokeless tobacco Me [facility] exposure 00:00:00 00:00:00 non-user Hospital Sex Assigned At [birth year] [facility] 00:00:00 00:00:00 Hospital Smoking Status Start Date Stop Date Source Ex-smoker 2019-03-07 00:00:00 2019-03-07 00:00:00 [facility] Medications Ordered Filled Start Stop Current Ordering Indication Dosage Frequency Signature Comments Components Source Medication Medication Date Date Medication? Clinician (SIG) Name Name Lexapro 0 Yes Van Baeza 1 tab(s) Me moria 2-06 l 03:45: Lexapro 2019-0 Yes Van Baeza 1 tab(s) Me moria 2-06 l 03:45: Xanax 2017-02 Yes Van Baeza 1 tab(s) Crow darinel 2-31 l 00:00: Xanax 2018-1 Yes Van Baeaz 1 tab(s) Crow darinel 2-31 l 00:00: Zyprexa 2018-0 Yes Van Baeza 1 tab(s) Me moria 9-06 l 00:00: Zyprexa 2018-0 Yes Van Baeza 1 tab(s) Me moria 9-06 l 00:00: PNV 2015-02 Yes 1{tbl} QD Take 1 [facility] comb.no76-i -07 tablet by jamie bender 09:37: mouth Hospi ta l-FA 29 mg 18 daily. l iron- 1 mg tablet per tablet PNV 2015-02 Yes 1{tbl} QD Take 1 [facility] comb.no76-i -07 tablet by jamie bender 09:37: mouth Hospi ta l-FA 29 mg 18 daily. l iron- 1 mg tablet per tablet sertraline 2015-02 Yes [facility] (ZOLOFT) 50 0-27 st MG tablet 00:00: Hospita 00 l sertraline 2015-02 Yes [facility] (ZOLOFT) 50 0-27 st MG tablet 00:00: Hospita 00 l ibuprofen 2015-02 Yes TK 1 T PO Met hodi (ADVIL,MOTR 0-[address] IN) 800 MG 00:00: Hospita tablet 00 l ibuprofen 2015-02 Yes TK 1 T PO Met hodi (ADVIL,MOTR 0-[address] IN) 800 MG 00:00: Hospita tablet 00 l escitalopra Yes TK 1 T PO M ethodi m (LEXAPRO) 9-[address] 10 MG 00:00: Hospita tablet 00 l escitalopra Yes TK 1 T PO M ethodi m (LEXAPRO) 9-[address] 10 MG 00:00: Hospita tablet 00 l HYDROcodone Yes TK 1 T PO M ethodi -acetaminop 8-05 Q [address] [facility] (NORCO) 00:00: PRN P Hospi ta 5-325 mg 00 l per tablet HYDROcodone Yes TK 1 T PO M ethodi -acetaminop 8-05 Q [address] [facility] (NORCO) 00:00: PRN P Hospi ta 5-325 mg 00 l per tablet tamsulosin Yes [facility] (FLOMAX) 7-12 st 0.4 mg 00:00: Hospita capsule,ext 00 l ended release 24hr GENERLAC 10 Yes Method i gram/15 mL 7-12 st solution 00:00: Hospita 00 l tamsulosin Yes [facility] (FLOMAX) 7-12 st 0.4 mg 00:00: Hospita capsule,ext 00 l ended release 24hr GENERLAC 10 Yes Method i gram/15 mL 7-12 st solution 00:00: Hospita 00 l Procedures This patient has no known procedures. Plan of Care Planned Activity Planned Date Details Comments Source Future Scheduled 2021-12-20 INFLUENZA VACCINE [facility] Test 16:20:28 [code = INFLUENZA VACCINE] Future Scheduled 2021-12-20 [facility] B [facility] 16:20:28 VACCINES (1 of 3 - 3-dose series) [code = HEPATITIS B VACCINES (1 of 3 - 3-dose series)] Future Scheduled 2021-12-20 [facility]:20[facility] (#1) [code = COVID-19 VACCINE (#1)] Future Scheduled 2021-12-20 Hepatitis C [facility] 16:20:28 screening (procedure) [code = 829589166] Future Scheduled 2021-12-20 Screening for [facility] Test 16:20:28 malignant neoplasm of cervix (procedure) [code = 392435182] Future Scheduled 2021-10-17 [facility] 07:10:57 VACCINES (1 of 3 - 3-dose series) [code = HEPATITIS B VACCINES (1 of 3 - 3-dose series)] Future Scheduled 2021-10-17 [facility] 07:10:57 (#1) [code = COVID-19 VACCINE (#1)] Future Scheduled 2021-10-17 [facility] 07:10:57 screening (procedure) [code = 313427178] Future Scheduled 2021-10-17 [facility] for [facility] Test 07:10:57 malignant neoplasm of cervix (procedure) [code = 667934259] Future Scheduled 2021-10-17 INFLUENZA VACCINE [facility] Test 07:10:57 [code = INFLUENZA VACCINE] Encounters Start End Encounter Admission Attending Care Care Encounter Source Date/Time Date/Time Type Type Clinicians Facility Department ID 2022-01-19 Outpatient [id number] [facility] 07:47:03 [id number] [place] [id number] 2021-11-07 Outpatient [id number] [facility] 23:07:28 [id number] Vitaly [id number] 2021-07-23 2021-07-23 Outpatient [id number] [id number] PRIV [id number] [facility] 03:23:00 03:23:00 ayle_RA [id number] Medica l 2020-06-30 2020-07-04 Emergency [facility] [id number] [place] 00:00:00 00:00:00 KALIF [address] 2019-03-08 2019-03-08 Outpatient [facility] [id number] [facility] 08:37:00 08:37:00 [facility] 2019-03-04 2019-03-04 Outpatient [facility] [id number] [facility] 14:03:00 14:03:00 [facility] 2018-05-25 2018-05-25 Outpatient [facility] [id number] [facility] 11:04:00 11:04:00 [facility] 2018-05-15 2018-05-15 Outpatient [facility] [id number] [facility] 16:02:00 16:02:00 [facility] 2017-08-01 2017-08-01 Outpatient [facility] [id number] [facility] 10:25:00 10:25:00 [facility] 2017-07-30 2017-07-30 Outpatient [facility] [id number] [facility] 20:36:00 20:36:00 [facility] 2017-07-30 2017-07-30 Outpatient [facility] [id number] [facility] 20:36:00 20:36:00 [facility] 2017-07-29 2017-07-29 Outpatient [facility] [id number] [facility] 20:56:00 20:56:00 [facility] 2017-07-29 2017-07-29 Outpatient [facility] [id number] [facility] 17:14:00 17:14:00 Medical Medical [...] LIBAN with probe detection (test code = 19825-6) Whether 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
[2022-01-19 08:44] LABS: Urine Blood 3+ (Negative); Urine Glucose Negative (Negative); Urine Protein 1+ (Negative); Urine Specific Gravity 1.025 (1.005-1.030)
[2022-01-19] MEDS ORDERED: ONDANSETRON 4 MG (ODT) TAB ONE (08:49)
[2022-01-19 09:15] LABS: Urine Specific Gravity/Preg 1.025 (1.005-1.030)
[2022-01-19 09:45] LABS: SARS-COV-2 RT PCR POSITIVE (NEGATIVE)
[2022-01-19] MEDS ORDERED: NA CHLORIDE 0.9% 1,000 ML ONE (10:10)
--- NOTE | 2022-01-19 10:13 | EDPHYS ---
Physician Documentation [facility] Name: Marta Perez Age: 36 yrs Sex: Female : 1985 Arrival Date: 01/19/2022 Time: 07:46 Bed 12 Private MD: ED Physician Bertin Gallego HPI: 01/19 10:02 This 36 yrs old Female presents to ER via Ambulatory with complaints of Loss wayne Of Taste/Smell, Weakness, Nausea. 10:02 The patient or guardian reports cough, described as mild, difficulty breathing. Onset: wayne The symptoms/episode began/occurred 4 day(s) ago. Modifying factors: The symptoms are alleviated by remaining still, the symptoms are aggravated by nothing. COVID X 4 DAYS , NAUSEA. Associated signs and symptoms: Pertinent positives: nausea. Severity of symptoms: At their worst the symptoms were mild in the emergency department the symptoms are unchanged. The patient has not experienced similar symptoms in the past. Historical: - Allergies: 08:27 No Known Allergies; iw - Home Meds: 08:27 phentermine oral [Active]; iw - PMHx: 08:27 Kidney stone; Ovarian cyst; iw - PSHx: 08:27 section; iw - Immunization history:: Client reports having NOT received the Covid vaccine. - Social history:: Smoking status: Patient denies any tobacco usage or history of. - Family history:: not pertinent. ROS: 10:02 Constitutional: Negative for fever, chills, and weight loss, Eyes: Negative for injury, wayne pain, redness, and discharge, ENT: Negative for injury, pain, and discharge, Neck: Negative for injury, pain, and swelling, Cardiovascular: Negative for chest pain, palpitations, and edema, Back: Negative for injury and pain, : Negative for injury, bleeding, discharge, and swelling, MS/Extremity: Negative for injury and deformity, Skin: Negative for injury, rash, and discoloration, Neuro: Negative for headache, weakness, numbness, tingling, and seizure, Psych: Negative for depression, anxiety, suicide ideation, homicidal ideation, and hallucinations, Allergy/Immunology: Negative for hives, rash, and allergies, Endocrine: Negative for neck swelling, polydipsia, polyuria, polyphagia, and marked weight changes, Hematologic/Lymphatic: Negative for swollen nodes, abnormal bleeding, and unusual bruising. 10:02 Respiratory: Positive for cough. 10:02 Abdomen/GI: Positive for nausea. Exam: 10:02 Constitutional: This is a well developed, well nourished patient who is awake, alert, wayne and in no acute distress. Head/Face: Normocephalic, atraumatic. Eyes: Pupils equal round and reactive to light, extra-ocular motions intact. Lids and lashes normal. Conjunctiva and sclera are non-icteric and not injected. Cornea within normal limits. Periorbital areas with no swelling, redness, or edema. ENT: Nares patent. No nasal discharge, no septal abnormalities noted. Tympanic membranes are normal and external auditory canals are clear. Oropharynx with no redness, swelling, or masses, exudates, or evidence of obstruction, uvula midline. Mucous membranes moist. Neck: Trachea midline, no thyromegaly or masses palpated, and no cervical lymphadenopathy. Supple, full range of motion without nuchal rigidity, or vertebral point tenderness. No Meningismus. Chest/axilla: Normal chest wall appearance and motion. Nontender with no deformity. No lesions are appreciated. Respiratory: Lungs have equal breath sounds bilaterally, clear to auscultation and percussion. No rales, rhonchi or wheezes noted. No increased work of breathing, no retractions or nasal flaring. Abdomen/GI: Soft, non-tender, with normal bowel sounds. No distension or tympany. No guarding or rebound. No evidence of tenderness throughout. Back: No spinal tenderness. No costovertebral tenderness. Full range of motion. Skin: Warm, dry with normal turgor. Normal color with no rashes, no lesions, and no evidence of cellulitis. MS/ Extremity: Pulses equal, no cyanosis. Neurovascular intact. Full, normal range of motion. Neuro: Awake and alert, GCS 15, oriented to person, place, time, and situation. Cranial nerves II-XII grossly intact. Motor strength 5/5 in all extremities. Sensory grossly intact. Cerebellar exam normal. Normal gait. Psych: Awake, alert, with orientation to person, place and time. Behavior, mood, and affect are within normal limits. 10:02 Cardiovascular: Rate: tachycardic, actual rate is 107 bpm, Rhythm: regular, Pulses: Pulses are 4+ in bilateral radial, brachial, femoral, popliteal, posterior tibial and and dorsalis pedis arteries.. Heart sounds: normal, Edema: is not appreciated. Vital Signs: 08:26 BP 112 / 93; Pulse 107; Resp 18; Temp 98.7; Pulse Ox 100% on R/A; Weight 58.97 kg; iw 10:18 BP 124 / 91; Pulse 92; Resp 18; Temp 98.8(O); Pulse Ox 100% on R/A; mm9 MDM: 08:04 Patient medically screened. wayne 10:06 Differential diagnosis: bronchitis, flu, URI. Antibiotic administration: Not indicated. wayne Differential Diagnosis flu. Data reviewed: vital signs, nurses notes, lab test result(s). 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 Test interpretation: by ED physician or midlevel provider:. Counseling: I had a detailed discussion with the patient and/or guardian regarding: the historical points, exam findings, and any diagnostic results supporting the discharge/admit diagnosis, lab results, the need for outpatient follow up, for definitive care, a family practitioner. 01/19 08:05 Order name: COVID-19/FLU A+B; Complete Time: 09:53 [facility] 01/19 08:44 Order name: Urine Dipstick-Ancillary; Complete Time: 09:17 EDOR 01/19 08:59 Order name: Urine --Ancillary (enter results); Complete Time: 09:17 eb 01/19 10:01 Order name: CBC with Diff [facility] 01/19 10:01 Order name: Comprehensive Metabolic Panel [facility] 01/19 08:05 Order name: Urine Dipstick-Ancillary (obtain specimen); Complete Time: 08:46 [facility] 01/19 08:05 Order name: Urine Test (obtain specimen); Complete Time: 08:46 wayne Administered Medications: 09:08 Drug: Ondansetron 4 mg Route: PO; iw 09:30 Follow up: Response: No adverse reaction iw 10:17 Drug: NS 0.9% 1000 ml Route: IV; Rate: 1 bolus; Site: right antecubital; iw 11:21 Follow up: Response: No adverse reaction; IV Status: Completed infusion; IV Intake: kb3 1000ml Disposition Summary: 01/19/22 10:12 Discharge Ordered Location: Home [facility] Problem: new wayne Symptoms: have improved wayne Condition: Stable wayne Diagnosis - Coronavirus infection, unspecified wayne - SARS-associated coronavirus as the cause of diseases classified elsewhere wayne - Cough wayne - Weakness wayne - Dehydration wayne Followup: [facility] - With: Private Physician - When: 2 - 3 days - Reason: Recheck today's complaints, Continuance of care, Re-evaluation by your physician Discharge Instructions: - Discharge Summary Sheet wayne - Dehydration, Adult wayne - Weakness wayne - Weakness, Btec-oe-Mdzh wayne - COVID-19 wayne - 10 Things You Can Do to Manage Your COVID-19 Symptoms at Home - [facility] Forms: - Medication Reconciliation Form [facility] - Thank You Letter [facility] - Antibiotic Education wayne - Prescription Opioid Use [facility] - Work release form eb Prescriptions: - Pepcid 20 mg Oral Tablet - take 1 tablet by ORAL route every 12 hours for 21 days; 42 tablet; Refills: 0, [facility] Product Selection Permitted - Zofran 4 mg Oral Tablet - take 1 tablet by ORAL route every 12 hours As needed; 20 tablet; Refills: 0, [facility] Product Selection Permitted - Zithromax Z-Duke 250 mg Oral Tablet - take 1 tablet by ORAL route as directed for 5 days Day 1 - take two (2) tablets wayne one time. Day 2, 3, 4 , 5 take one (1) tablet once daily.; 6 tablet; Refills: 0, Product Selection Permitted Signatures: Dispatcher [employer] Bertin Watson MD MD cha Williams, Irene, RN BORIS iw Ann Marie Campbell RN kb3
--- NOTE | 2022-01-19 10:13 | ER ---
Nurse's Notes [facility] Name: Marta Perez Age: 36 yrs Sex: Female : 1985 Arrival Date: 01/19/2022 Time: 07:46 Bed 12 Private MD: Diagnosis: Coronavirus infection, unspecified;SARS-associated coronavirus as the cause of diseases classified elsewhere;Cough;Weakness;Dehydration Presentation: 01/19 08:26 Chief complaint: Patient states: pt c/o loss of taste/smell and no appetite, subjective iw fever, sweats, chills since Friday. Coronavirus screen: Client presents with at least one sign or symptom that may indicate coronavirus-19. Ebola Screen: Patient negative for fever greater than or equal to 101.5 degrees Fahrenheit, and additional compatible Ebola Virus Disease symptoms Patient denies exposure to infectious person. Patient denies travel to an Ebola-affected area in the 21 days before illness onset. No symptoms or risks identified at this time. Initial Sepsis Screen: Does the patient meet any 2 criteria? No. Patient's initial sepsis screen is negative. Does the patient have a suspected source of infection? No. Patient's initial sepsis screen is negative. Risk Assessment: Do you want to hurt yourself or someone else? Patient reports no desire to harm self or others. 08:26 Method Of Arrival: Ambulatory iw 08:26 Acuity: SANDRA 4 iw 08:26 Onset of symptoms was January 15, 2022. iw 10:04 Acuity: SANDRA 3 iw Triage Assessment: 11:00 General: Appears in no apparent distress. Behavior is calm, cooperative. iw Historical: - Allergies: 08:27 No Known Allergies; iw - Home Meds: 08:27 phentermine oral [Active]; iw - PMHx: 08:27 Kidney stone; Ovarian cyst; iw - PSHx: 08:27 section; iw - Immunization history:: Client reports having NOT received the Covid vaccine. - Social history:: Smoking status: Patient denies any tobacco usage or history of. - Family history:: not pertinent. Screenin:00 Abuse screen: Denies threats or abuse. Denies injuries from another. Nutritional iw screening: No deficits noted. Tuberculosis screening: No symptoms or risk factors identified. Fall Risk IV access (20 points). Assessment: 11:00 Reassessment: Patient appears in no apparent distress at this time. General: Pt kb3 ambulatory to restroom without difficulty. Vital Signs: 08:26 BP 112 / 93; Pulse 107; Resp 18; Temp 98.7; Pulse Ox 100% on R/A; Weight 58.97 kg; iw 10:18 BP 124 / 91; Pulse 92; Resp 18; Temp 98.8(O); Pulse Ox 100% on R/A; mm9 ED Course: 07:46 Patient arrived in ED. rg4 08:04 Bertin Gallego MD is Attending Physician. wayne 08:25 Norma Valdez, RN is Primary Nurse. iw 08:26 Triage completed. iw 08:28 Arm band placed on. iw 08:46 Urine obtained. Urine : negative. Labs ordered per protocol. rs5 08:46 COVID-19/FLU A+B Sent. rs5 09:00 Patient has correct armband on for positive identification. iw 10:19 CBC with Diff Sent. iw 10:19 Comprehensive Metabolic Panel Sent. iw 10:20 Initial lab(s) drawn, by ri, sent to lab. Inserted saline lock: 22 gauge in right iw antecubital area, using aseptic technique. Blood collected. 11:39 No provider procedures requiring assistance completed. IV discontinued, intact, iw bleeding controlled, No redness/swelling at site. Pressure dressing applied. Administered Medications: 09:08 Drug: Ondansetron 4 mg Route: PO; iw 09:30 Follow up: Response: No adverse reaction iw 10:17 Drug: NS 0.9% 1000 ml Route: IV; Rate: 1 bolus; Site: right antecubital; iw 11:21 Follow up: Response: No adverse reaction; IV Status: Completed infusion; IV Intake: kb3 1000ml Medication: 09:35 VIS not applicable for this client. iw Intake: 11:21 IV: 1000ml; Total: 1000ml. kb3 Outcome: 10:12 Discharge ordered by . [facility] 11:39 Discharged to home ambulatory. iw 11:39 Condition: good 11:39 Discharge instructions given to patient, Instructed on discharge instructions, follow up and referral plans. Demonstrated understanding of instructions, follow-up care, Prescriptions given X 3. 11:40 Patient left the ED. mm9 Signatures: Bertin Gallego MD MD cha Williams, Irene, RN Iman Aldana rg4 Ann Marie Campbell RN RN kb3 Huma Anthony mm9 Omi Bess rs5 Corrections: (The following items were deleted from the chart) 01/20 07:24 01/19 11:39 Discharge instructions given to patient, Instructed on discharge iw instructions, follow up and referral plans. Demonstrated understanding of instructions, follow-up care, iw
[2022-01-19 10:36] LABS: Absolute Lymphocytes (CBC) 0.6 K/uL (0.7-4.9); Hematocrit 42.5 % (36.0-45.0); Lymphocytes % 22.4 % (15.3-44.8); MCV 83.1 fL (80-100); MPV 10.3 fL (7.6-11.3); RBC Red Blood Cell Count 5.11 M/uL (3.86-4.86)
[2022-01-19 11:01] LABS: Albumin 3.9 g/dL (3.4-5.0); Bilirubin Total 0.4 mg/dL (0.2-1.0); Protein, Total 7.2 g/dL (6.4-8.2)
[2022-01-19 11:53] VITALS: O2SAT 100
[2022-01-19 11:54] VITALS: BP 124/91; TEMP 98.8
== END 2022-01-19 11:40 | disposition home or self-care (01) ==
LOC: ER 07:42
DX: U07.1 COVID-19 (principal); E86.0 Dehydration; R05.9 Cough, unspecified
CPT/HCPCS: 0240U; 36415; 80053; 81003; 81025; 85025; 96360; 99284; J7030; Q0162

== ENCOUNTER 2022-01-22 12:50 | Emergency (ER) | payer SELFPAY ==
--- OUTSIDE RECORDS SUMMARY | 2022-01-22 12:52 | XMS REPORT | Continuity of Care Document ---
:1985 Author Organization [facility] t Address [address] [place] [address] Care Team Providers Name Role Phone Baeza Bobby Fermin Primary Care Physician [email or web address] Attending Clinician Unavailable KODY MONROE Attending Clinician Unavailable DO KODY MONROE Attending Clinician Unavailable RENETTA_Gaysohail_RA Admitting Clinician Unavailable DO KODY MONROE Admitting Clinician Unavailable Payers Payer Name Policy Type Policy Number Effective Date Expiration Date [facility] [id number] 2020 00:00:00 Problems Condition Condition Condition Status Onset Resolution Last Treating Co mments Source Name Details Category Date Date Treatment Clinician Date Kidney Kidney Disease Active 2015-02 [facility] l Left Left Disease Active [facility] ure[facility] l Generalize Generaliz Problem Active 2019-05-14 [facility] d anxiety ed anxiety 02:45:44 l disorder disorder Kyle n Active Problem 05/14/2019 [facility] Auditory Auditory Problem Active 2019-05-14 [facility] hallucinat hallucinat 02:45:44 l ion ion Active Ykle n Problem 05/14/2019 [facility] Allergies, Adverse Reactions, Alerts This patient has no known allergies or adverse reactions. Family History Family Member Diagnosis Comments Start Date Stop Date Source Natural father Cancer [facility] Natural mother No Known Problems Met [facility] Social History Social Habit Start Date Stop Date Quantity Comments Source History SDOH [facility] History SDOH [facility] Drinks History of Current smoker [facility] Alcohol intake 2020-06-30 2020-06-30 Current [facility] 00:00:00 00:00:00 non-drinker of Hospital alcohol (finding) History SDOH 2019-03-08 2019-03-08 1 [facility] Frequency 00:00:00 00:00:00 Hospita l Tobacco use and 2019-03-07 2019-03-07 Smokeless tobacco [facility] 00:[facility]:00 non-user Hospital Sex Assigned At [birth year] [facility] Smoking Status Start Date Stop Date Source Ex-smoker 2019-03-07 00:00:00 2019-03-07 [facility] Medications Ordered Filled Start Stop Current Ordering Indication Dosage Frequency Signature Comments Components Source Medication Medication Date Date Medication? Clinician (SIG) Name Name Lexapro 2020-0 Yes Van Baeza 1 tab(s) Me [facility]ia 2-06 l 03:45: Lexapro 2020-0 Yes Van Baeza 1 tab(s) Me moria 2-06 l 03:45: Lexapro 2020-0 Yes Van Baeza 1 tab(s) Me moria 2-06 l 03:45: Xanax 2017-02 Yes Van Baeza 1 tab(s) Crow darinel 2-31 l 00:00: Xanax 2018- Yes Van Baeza 1 tab(s) [facility] 2-31 l 00:00: Xanax 2018- Yes Van Baeza 1 tab(s) [facility] 2-31 l 00:00: Zyprexa 20180 Yes Van Baeza 1 tab(s) Me moria 9-06 l 00:00: Zyprexa 2018-0 Yes Van Baeza 1 tab(s) Me [facility]ia 9-06 l 00:00: Zyprexa 20180 Yes Van Baeza 1 tab(s) Me [facility]ia 9-06 l 00:00: PNV 2015-02 Yes 1{tbl} QD Take 1 [facility] comb.no76-i 02-23 tablet by [facility] 09:37: mouth Hospi ta l-FA 29 mg 18 daily. l iron- 1 mg tablet per tablet PNV 2015-02 Yes 1{tbl} QD Take 1 [facility] comb.no76-i 02-23 tablet by [facility] 09:37: mouth Hospi ta l-FA 29 mg 18 daily. l iron- 1 mg tablet per tablet PNV 2015-02 Yes 1{tbl} QD Take 1 [facility] comb.no76-i 02-23 tablet by [facility] 09:37: mouth Hospi ta l-FA 29 mg [...] 5-325 mg 00 l per tablet HYDROcodone 2015-0 Yes TK 1 T PO M ethodi [...] Date Details Comments Source Future Scheduled 2021-12-20 [facility] B [facility] Test 16:20:28 VACCINES (1 of 3 - 3-dose series) [code = HEPATITIS B VACCINES (1 of 3 - 3-dose series)] Future Scheduled 2021-12-20 COVID[facility]19 [facility] 16:20:28 (#1) [code = COVID-19 VACCINE (#1)] Future Scheduled 2021-12-20 Hepatitis C [facility] Test 16:20:28 screening (procedure) [code = 974883230] Future Scheduled 2021-12-20 Screening for [facility] Test 16:20:28 malignant neoplasm of cervix (procedure) [code = 059998013] Future Scheduled 2021-12-20 INFLUENZA VACCINE [facility] Test 16:20:28 [code = INFLUENZA VACCINE] Future Scheduled 2021-12-20 [facility] Test 16:20:28 VACCINES (1 of 3 - 3-dose series) [code = HEPATITIS B VACCINES (1 of 3 - 3-dose series)] Future Scheduled 2021-12-20 COVID-19 VACCINE [facility] Test 16:20:28 (#1) [code = COVID-19 VACCINE (#1)] Future Scheduled 2021-12-20 [facility] Test 16:20:28 screening (procedure) [code = 369434645] Future Scheduled 2021-12-20 [facility] Test 16:20:28 malignant neoplasm of cervix (procedure) [code = 449348563] Future Scheduled 2021-12-20 INFLUENZA VACCINE [facility] Test 16:20:28 [code = INFLUENZA VACCINE] Future Scheduled 2021-10-17 [facility] B [facility] Test 07:10:57 VACCINES (1 of 3 - 3-dose series) [code = HEPATITIS B VACCINES (1 of 3 - 3-dose series)] Future Scheduled 2021-10-17 COVID-19 VACCINE [facility] Test 07:10:57 (#1) [code = COVID-19 VACCINE (#1)] Future Scheduled 2021-10-17 [facility] Test 07:10:57 screening (procedure) [code = 048094946] Future Scheduled 2021-10-17 Screening for [facility] Test 07:10:57 malignant neoplasm of cervix (procedure) [code = 695350459] Future Scheduled 2021-10-17 INFLUENZA VACCINE [facility] Test 07:10:57 [code = INFLUENZA VACCINE] Encounters Start End Encounter Admission Attending Care Care Encounter Source Date/Time Date/Time Type Type Clinicians Facility Department ID 2022-01-22 Outpatient [id number] [facility] 12:52:21 [id number] [id number] 2022-01-19 Outpatient [id number] [facility] 07:47:03 [id number] Vitaly [id number] 2021-11-07 Outpatient [id number] [facility] 23:07:28 [id number] Vitaly [id number] 2021-07-23 2021-07-23 Outpatient [id number] [id number] PRIV [id number] [facility] 03:23:00 03:23:00 ayle_RA [id number] Medica l 2020-06-30 2020-07-04 Emergency [place] [id number] [address] [place] [address] 00:00:00 00:00:[address] KALIF [address] 2019-03-08 2019-03-08 Outpatient [facility] [id number] Mem[facility] 08:37:00 08:37:00 [facility] 2019-03-04 2019-03-04 Outpatient [facility] [id number] [facility] 14:03:00 14:03:00 Medical Medical [facility] Group [facility]y 2018-05-25 2018-05-25 Outpatient [facility] [id number] Mem[facility] 11:04:00 11:04:00 Medical Medical [facility] Group [facility]y 2018-05-15 2018-05-15 Outpatient [facility] [id number] Mem[facility] 16:02:00 16:02:00 Medical [facility] 2017-08-01 2017-08-01 Outpatient [facility] [id number] [facility] 10:25:00 10:25:00 Medical Medical l [facility] Group [facility]y 2017-07-30 2017-07-30 Outpatient [facility] [id number] [facility] 20:36:00 20:36:00 Medical [facility] Group [facility]y 2017-07-30 2017-07-30 Outpatient [facility] [id number] [facility] 20:36:00 20:36:00 Medical [facility] Group [facility]y 2017-07-29 2017-07-29 Outpatient [facility] [id number] Memoria 20:56:00 20:56:00 Medical Medical l Group Group [facility]y 2017-07-29 2017-07-29 Outpatient [facility] [id number] Memoria 17:14:00 17:14:00 Medical Medical [...] LIBAN with probe detection (test code = 31552-7) Whether patient is employed in a healthcare setting (test code = 20253-7) Whether the patient has symptoms related to condition of interest (test code = 40123-3) Patient was hospitalized because of this condition (test code = 71981-7) Whether the patient was admitted to intensive care unit (ICU) for condition of interest (test code = 05091-2) Whether patient resides in a congregate care setting (test code = 14054-9) [facility]
[2022-01-22 13:17] LABS: Urine Blood 3+ (Negative); Urine Glucose Negative (Negative); Urine Protein 1+ (Negative); Urine Specific Gravity 1.025 (1.005-1.030)
--- NOTE | 2022-01-22 13:26 | RAD REPORT ---
EXAM DESCRIPTION: CT - Stone Protocol - 01/22/2022 1:09 pm CLINICAL HISTORY: Abdominal pain. COMPARISON: October 2021 TECHNIQUE: Computed axial tomography of the abdomen pelvis was obtained without oral or IV contrast. Lack of IV and oral contrast limits evaluation of solid organs, appendix, bowel, and vessels. Flores l reformatted images were obtained and reviewed. All CT scans are performed using dose optimization technique as appropriate and may include automated exposure control or mA/KV adjustment according to patient size. FINDINGS: Small bilateral renal calculi. No hydronephrosis A ureteral calculus is not seen. No bladder calculus No hydronephrosis The liver, spleen, pancreas and adrenals appear grossly normal There is no evidence of diverticulitis. The appendix appears normal Small area sclerosis each femoral head Mild ground-glass opacities within the lung bases IMPRESSION: Bilateral small nonobstructing renal calculi Small area sclerosis each femoral head may indicate early avascular necrosis. If clinically indicated MRI of the hips could be obtained for further evaluation Mild ground-glass opacities within the lung bases indicative of a mild alveolitis
[2022-01-22 14:04] LABS: Urine Bacteria Loaded /HPF (<20); Urine Mucus 3+ /HPF (None Seen); Urine RBC >50 /HPF (None Seen)
--- NOTE | 2022-01-22 14:20 | EDPHYS ---
Physician Documentation [facility] Name: Marta Perez Age: 36 yrs Sex: Female : 1985 Arrival Date: 01/22/2022 Time: 12:53 Bed 11 Private MD: ED Physician Chito Tay HPI: 01/22 13:39 This 36 yrs old Female presents to ER via Ambulatory with complaints of Urinary Problem.rn 13:39 The patient presents with urinary symptoms, dysuria. rn 13:40 Onset: The symptoms/episode began/occurred at an unknown time. Modifying factors: The rn symptoms are alleviated by nothing, the symptoms are aggravated by urinating. Associated signs and symptoms: Pertinent positives: dysuria, Pertinent negatives: fever, hematuria, vaginal discharge. Severity of symptoms: At their worst the symptoms were mild, in the emergency department the symptoms are unchanged. The patient has experienced similar episodes in the past. The patient has not recently seen a physician. Pt reports diagnosed with COVID last weekend, feels like is getting over it now, was having some dysuria and lower abd/back pain and has hx of kidney stones so wanted to make sure it wasn't another stone. No fever. No vomiting. . [employer]: 12:59 LMP 01/14/2022 [facility] Historical: - Allergies: 16:06 No Known Allergies; db - PMHx: 12:59 Kidney stone; Ovarian cyst; 5 - PSHx: 12:59 section; 5 - Immunization history:: Adult Immunizations up to date. - Social history:: Smoking status: Patient denies any tobacco usage or history of. - Family history:: not pertinent. - Hospitalizations: : No recent hospitalization is reported. ROS: 13:40 Constitutional: Negative for fever, chills, and weight loss, Eyes: Negative for injury, rn pain, redness, and discharge, Neck: Negative for injury, pain, and swelling, Cardiovascular: Negative for chest pain, palpitations, and edema, Respiratory: Negative for shortness of breath, cough, wheezing, and pleuritic chest pain, Abdomen/GI: + lower abd pain Back: + lower back pain : + dysuria MS/Extremity: Negative for injury and deformity, Skin: Negative for injury, rash, and discoloration, Neuro: Negative for headache, weakness, numbness, tingling, and seizure. Exam: 13:40 Constitutional: This is a well developed, well nourished patient who is awake, alert, rn and in no acute distress. Head/Face: Normocephalic, atraumatic. Cardiovascular: Regular rate and rhythm. No pulse deficits. Respiratory: No increased work of breathing, no retractions or nasal flaring. Abdomen/GI: Soft, mild suprapubic tenderness, no rebound Back: No spinal tenderness. No costovertebral tenderness. Full range of motion. Skin: Warm, dry MS/ Extremity: Pulses equal, no cyanosis. Neuro: Awake and alert, GCS 15 Vital Signs: 12:57 BP 120 / 95; Pulse 93; Resp 16; Temp 97.1; Pulse Ox 100% ; Weight 54.43 kg; Height 5 jh5 ft. 0 in. (152.40 cm); Pain 8/10; 13:45 BP 115 / 83; Pulse 68; Resp 16; Pulse Ox 100% on R/A; db 14:50 BP 118 / 99; Pulse 69; Resp 16; Pulse Ox 100% on R/A; db 15:30 BP 133 / 94; Pulse 62; Resp 16; Pulse Ox 100% on R/A; db 16:06 Temp 98.2(O); db 12:57 Body Mass Index 23.44 (54.43 kg, 152.40 cm) jh5 MDM: 12:55 Patient medically screened. rn 14:17 Differential diagnosis: appendicitis, kidney stone, nonspecific abdominal pain, ovarian rn cyst, urinary tract infection. Data reviewed: vital signs, nurses notes, lab test result(s), radiologic studies, CT scan, and as a result, I will discharge patient. Counseling: I had a detailed discussion with the patient and/or guardian regarding: the historical points, exam findings, and any diagnostic results supporting the discharge/admit diagnosis, lab results, radiology results, the need for outpatient follow up, to return to the emergency department if symptoms worsen or persist or if there are any questions or concerns that arise at home. Response to treatment: the patient's symptoms have mildly improved after treatment, and as a result, I will discharge patient. Special discussion: I discussed with the patient/guardian in detail that at this point there is no indication for admission to the hospital. It is understood, however, that if the symptoms persist or worsen the patient needs to return immediately for re-evaluation. Based on the history and exam findings, there is no indication for further emergent testing or inpatient evaluation. I discussed with the patient/guardian the need to see the orthopedic surgeon for further evaluation of the symptoms. I discussed with the patient/guardian the need to see the primary care provider for further evaluation of the symptoms. ED course: + UTI, will dc home with abx and return precautions. CT shows remnants of COVID infection in lungs, no oxygen requirement and already improved. Spoke with patient regarding findings of sclerosis of femoral heads, radiologist commented on possibility of avascular necrosis, and patient told to f/u and get MRI as outpt as well as ortho f/u. Pt denies any hip or groin pain or trouble ambulating. . 14:41 ED course: Pt refuses tramadol, is being very manipulative, states every other time she rn has been here has received IV fluids and IV pain medication, had long talk with her and trouble with narcotics, she threatened to "start crying for medication", and states she feels she is not being cared for. I explained to her that this is not the case and this episode is different from other episodes when she had kidney stones or something that required narcotics. Patient states she is jsut going to come right back and states mother is going to pick her up. . 01/22 12:55 Order name: Urine Microscopic Only; Complete Time: 14:10 rn 01/22 13:18 Order name: Urine Dipstick-Ancillary; Complete Time: 13:31 EDMS 01/22 13:00 Order name: CT Stone Protocol; Complete Time: 13:31 rn 01/22 13:23 Order name: Urine --Ancillary (enter results) bd 01/22 12:55 Order name: Urine Dipstick-Ancillary (obtain specimen); Complete Time: 13:19 rn 01/22 12:55 Order name: Urine Test (obtain specimen); Complete Time: 13:19 rn 01/22 14:45 Order name: IV Start; Complete Time: 15:06 rn Administered Medications: 14:46 Not Given (Patient Refused; wants IV medicationn): traMADol 50 mg PO once db 15:05 Drug: morphine 2 mg Route: IVP; Infused Over: 4 mins; Site: right antecubital; db 16:33 Follow up: Response: No adverse reaction; Pain is decreased db 15:05 Drug: NS 0.9% 1000 ml Route: IV; Rate: 1000 ml; Site: right antecubital; db 16:32 Follow up: Response: No adverse reaction; IV Status: Completed infusion; IV Intake: db 1000ml 15:24 Drug: Phenergan (promethazine) 12.5 mg Route: IVP; Site: right antecubital; db 16:32 Follow up: Response: No adverse reaction; Nausea is decreased db Disposition Summary: 01/22/22 14:20 Discharge Ordered Location: Home rn Problem: new rn Symptoms: have improved rn Condition: Stable rn Diagnosis - UTI/ Urinary tract infection, site not specified rn Followup: rn - With: Private Physician - When: As needed - Reason: Recheck today's complaints, Re-evaluation by your physician Discharge Instructions: - Discharge Summary Sheet rn - Dysuria rn - Urinary Tract Infection, Adult rn Forms: - Medication Reconciliation Form rn - Thank You Letter rn - Antibiotic cardiac rn - Prescription Opioid Use rn Prescriptions: - ondansetron 4 mg Oral tablet,disintegrating - place 1 tablet by TRANSLINGUAL route every 8 hours As needed; 10 tablet; rn Refills: 0, Product Selection Permitted - Pyridium 200 mg Oral Tablet - take 1 tablet by ORAL route every 8 hours for 3 days; 9 tablet; Refills: 0, rn Product Selection Permitted - Cipro 500 mg Oral Tablet - take 1 tablet by ORAL route every 12 hours for 7 days; 14 tablet; Refills: 0, rn Product Selection Permitted - Tylenol-Codeine #3 300 mg-30 mg Oral - take 1 tablet by ORAL route every 8 hours As needed; 10 tablet; Refills: 0, rn Product Selection Permitted Signatures: Dispatcher [employer] Mohini Nguyen, JANA-C NEWSPAPER PHOTOGRAPHER-[place] Chito Tay MD MD rn Rees, Jessica RN RN jh5 Hiral Bush, RN RN db
--- NOTE | 2022-01-22 14:20 | ER ---
Nurse's Notes [facility] Name: Marta Perez Age: 36 yrs Sex: Female : 1985 Arrival Date: 01/22/2022 Time: 12:53 Bed 11 Private MD: Diagnosis: UTI/ Urinary tract infection, site not specified Presentation: 01/22 12:57 Chief complaint: Patient states: i think i have a urethral infection or something. I am jh5 having pain in my lower abdomen and lower back. Coronavirus screen: Vaccine status: Patient reports receiving the 2nd dose of the covid vaccine. Ebola Screen: Patient negative for fever greater than or equal to 101.5 degrees Fahrenheit, and additional compatible Ebola Virus Disease symptoms Patient denies exposure to infectious person. Patient denies travel to an Ebola-affected area in the 21 days before illness onset. Initial Sepsis Screen: Does the patient meet any 2 criteria? No. Patient's initial sepsis screen is negative. Does the patient have a suspected source of infection? No. Patient's initial sepsis screen is negative. Risk Assessment: Do you want to hurt yourself or someone else? Patient reports no desire to harm self or others. 12:57 Method Of Arrival: Ambulatory [facility] 12:57 Acuity: SANDRA 3 jh5 16:32 Onset of symptoms was January 22, 2022. db Triage Assessment: 12:59 General: Appears in no apparent distress. uncomfortable, slender, well groomed, well jh5 developed, Behavior is calm, cooperative, appropriate for age. Pain: Complains of pain in abdomen. 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 - Social history:: Smoking status: Patient denies any tobacco usage or history of. - Family history:: not pertinent. - Hospitalizations: : No recent hospitalization is reported. Screenin:48 Abuse screen: Denies threats or abuse. Denies injuries from another. Nutritional db screening: No deficits noted. Tuberculosis screening: No symptoms or risk factors identified. Fall Risk None identified. No fall in past 12 months (0 pts). No secondary diagnosis (0 pts). No IV (0 pts). Ambulatory Aid- None/Bed Rest/Nurse Assist (0 pts). Gait- Normal/Bed Rest/Wheelchair (0 pts) Mental Status- Oriented to own ability (0 pts). Total Villatoro Fall Scale indicates No Risk (0-24 pts). Assessment: 13:46 Reassessment: Patient appears in no apparent distress at this time. Patient and/or db family updated on plan of care and expected duration. Pain level reassessed. Patient is alert, oriented x 3, equal unlabored respirations, skin warm/dry/pink. states has urinary pain. 13:47 General: Appears in no apparent distress. comfortable, Behavior is calm, cooperative, db appropriate for age, quiet. Pain: Denies pain. Neuro: No deficits noted. Level of Consciousness is awake, alert, obeys commands, Moves all extremities. Speech is normal, Facial symmetry appears normal, Pupils are PERRLA. Cardiovascular: No deficits noted. Respiratory: No deficits noted. Airway is patent Respiratory effort is even, unlabored, Respiratory pattern is regular, symmetrical, Breath sounds are clear bilaterally. GI: Abdomen is flat, non-distended. : Reports burning with urination. EENT: No deficits noted. No signs and/or symptoms were reported regarding the EENT system. Derm: No deficits noted. No signs and/or symptoms reported regarding the dermatologic system. 14:25 Reassessment: patient refused Tramadol. States medication does not work. States would db like IV meds and fluids. Notified Dr. Tay. 15:09 Reassessment: Patient appears in no apparent distress at this time. Patient and/or db family updated on plan of care and expected duration. Pain level reassessed. Patient is alert, oriented x 3, equal unlabored respirations, skin warm/dry/pink. reporting Nausea notified GILDA Alcaraz. 16:05 Reassessment: Patient appears in no apparent distress at this time. No changes from db previously documented assessment. Patient and/or family updated on plan of care and expected duration. Pain level reassessed. Patient is alert, oriented x 3, equal unlabored respirations, skin warm/dry/pink. patient ambulatory to restroom. states still has pain. 16:31 Reassessment: Patient appears in no apparent distress at this time. Patient and/or db family updated on plan of care and expected duration. Pain level reassessed. Patient is alert, oriented x 3, equal unlabored respirations, skin warm/dry/pink. Vital Signs: 12:57 BP 120 / 95; Pulse 93; Resp 16; Temp 97.1; Pulse Ox 100% ; Weight 54.43 kg; Height 5 [facility] ft. 0 in. (152.40 cm); Pain 8/10; 13:45 BP 115 / 83; Pulse 68; Resp 16; Pulse Ox 100% on R/A; db 14:50 BP 118 / 99; Pulse 69; Resp 16; Pulse Ox 100% on R/A; db 15:30 BP 133 / 94; Pulse 62; Resp 16; Pulse Ox 100% on R/A; db 16:06 Temp 98.2(O); db 12:57 Body Mass Index 23.44 (54.43 kg, 152.40 cm) [facility] ED Course: 12:53 Patient arrived in ED. mr 12:55 Chito Tay MD is Attending Physician. rn 12:59 Triage completed. [facility] 12:59 Arm band placed on right wrist. [facility] 13:10 Hiral Bush, RN is Primary Nurse. db 13:10 CT Stone Protocol In Process Unspecified. EDMS 14:46 No provider procedures requiring assistance completed. db 15:00 Inserted saline lock: 20 gauge in right antecubital area, using aseptic technique. db Blood collected. 16:06 Patient has correct armband on for positive identification. Bed in low position. Call db light in reach. Side rails up X 1. 16:32 IV discontinued, intact, bleeding controlled, No redness/swelling at site. db Administered Medications: 14:46 Not Given (Patient Refused; wants IV medicationn): traMADol 50 mg PO once db 15:05 Drug: morphine 2 mg Route: IVP; Infused Over: 4 mins; Site: right antecubital; db 16:33 Follow up: Response: No adverse reaction; Pain is decreased db 15:05 Drug: NS 0.9% 1000 ml Route: IV; Rate: 1000 ml; Site: right antecubital; db 16:32 Follow up: Response: No adverse reaction; IV Status: Completed infusion; IV Intake: db 1000ml 15:24 Drug: Phenergan (promethazine) 12.5 mg Route: IVP; Site: right antecubital; db 16:32 Follow up: Response: No adverse reaction; Nausea is decreased db Medication: 16:32 VIS not applicable for this client. db Intake: 16:32 IV: 1000ml; Total: 1000ml. db Outcome: 14:20 Discharge ordered by . rn 16:31 Discharged to home ambulatory. db 16:31 Discharged to home ambulatory, with family. 16:31 Condition: stable 16:31 Discharge instructions given to patient. 16:31 Instructed on discharge instructions, follow up and referral plans. Demonstrated understanding of instructions, Prescriptions given X 4. 16:33 Patient left the ED. db Signatures: Dispatcher [employer] [facility] Sabine Barros mr Chito Tay MD MD rn Rees, Jessica, RN RN 5 Hiral Bush RN RN db Corrections: (The following items were deleted from the chart) 14:46 14:31 traMADol 50 mg PO db db
[2022-01-22] MEDS ORDERED: TRAMADOL HCL 50 MG TAB ONE (14:31)
[2022-01-22] MEDS ORDERED: MORPHINE 2 MG/ML SYR ONE (14:50)
[2022-01-22] MEDS ORDERED: NA CHLORIDE 0.9% 1,000 ML ONE (14:50)
[2022-01-22 15:13] LABS: Urine Specific Gravity/Preg 1.025 (1.005-1.030)
[2022-01-22] MEDS ORDERED: PROMETHAZINE INJ 25 MG/ML AMP ONE (15:19)
[2022-01-22 20:36] VITALS: O2SAT 100
[2022-01-22 20:53] VITALS: BP 133/94
[2022-01-22 20:54] VITALS: TEMP 98.2
== END 2022-01-22 16:33 | disposition home or self-care (01) ==
LOC: ER 12:50
DX: N39.0 Urinary tract infection, site not specified (principal); Z87.442 Personal history of urinary calculi
CPT/HCPCS: 74176; 76377; 81003; 81015; 81025; 96361; 96374; 96375; 99284; J2270; J2550; J7030

== ENCOUNTER 2022-01-23 11:23 | Emergency (ER) | payer SELFPAY ==
--- OUTSIDE RECORDS SUMMARY | 2022-01-23 11:26 | XMS REPORT | Continuity of Care Document ---
:1985 Author Organization [facility] t Address [address] [place] [address] Care Team Providers Name Role Phone Baeza Bobby Fermin Primary Care Physician DINA_[email or web address] Attending Clinician Unavailable KODY MONROE Attending Clinician Unavailable DO KODY MONROE Attending Clinician Unavailable RENETTA_Gaysohail_RA Admitting Clinician Unavailable DO KODY MONROE Admitting Clinician Unavailable Payers Payer Name Policy Type Policy Number Effective Date Expiration Date [facility] [id number] 2020 00:00:00 Problems Condition Condition Condition Status [...] Date Stop Date Source Natural father Cancer [facility] Natural mother No Known Problems Met [facility] Social History Social Habit Start Date Stop Date Quantity Comments Source History SDOH [facility] History SDOH [facility] Drinks History of Current smoker [facility] Alcohol intake 2020-06-30 2020-06-30 Current [facility] 00:[facility]:00 00:00:00 non-drinker of Hospital alcohol (finding) History SDOH 2019-03-08 2019-03-08 1 [facility] Frequency 00:00:00 00:00:00 Hospita l Tobacco use and 2019-03-07 2019-03-07 Smokeless tobacco [facility] 00[facility]00:00 00:00:00 non-user Hospital Sex [facility]igned At [birth year] [facility] Smoking Status Start Date [...] tab(s) Me moria 2-06 l 03:45: Xanax 2018-1 Yes Van Baeza 1 tab(s) [facility] darinel 2-31 l 00:00: Xanax 2018-1 Yes [facility] Baeza 1 tab(s) [facility] 2-31 l 00:00: Xanax 2018-1 Yes Van Baeza 1 tab(s) [facility] 2-31 l 00:00: Xanax 2018-1 Yes Van Baeza 1 tab(s) [facility] darinel 2-31 l 00:00: Zyprexa 2018-0 Yes [facility] Baeza 1 tab(s) Me moria 9-06 l 00:00: Zyprexa 2018-0 Yes Van Baeza 1 tab(s) Me moria 9-06 l 00:00: Dixon Zyprexa 2018-0 Yes Van Baeza 1 tab(s) Me moria 10-23 l 00:00: [place] Zyprexa 2018-0 Yes Van Baeza 1 tab(s) Me moria 10-23 l 00:00: Dixon 00 PNV 2015-02 Yes 1{tbl} QD Take 1 Methodi comb.no76-i 02-23 tablet by [employer] 09:37: mouth Hospi ta l-FA 29 mg 18 daily. l iron- 1 mg tablet per tablet PN 2015-02 Yes 1{tbl} QD Take 1 Methodi comb.no76-i 02-23 tablet by [employer] 09:37: mouth Hospi ta l-FA 29 mg 18 daily. l iron- 1 mg tablet per tablet PN 2015-02 Yes 1{tbl} QD Take 1 Method[facility] comb.no76-i 02-23 tablet by [employer] 09:37: mouth Hospi ta l-FA 29 mg 18 daily. l iron- 1 mg tablet per tablet PN 2015-02 Yes 1{tbl} QD Take 1 Methodi comb.no76-i 02-23 tablet by [employer] 09:37: mouth Hospi ta l-FA 29 mg [...] MG 00:00: Hospita tablet 00 l ibuprofen 2015- Yes TK 1 T PO Met hodi (ADVIL,MOTR 0-[address] IN) 800 MG 00:00: Hospita tablet 00 l escitalopra Yes TK 1 T PO M ethodi m (LEXAPRO) 9-[address] 10 MG 00:00: Hospita tablet 00 l escitalopra Yes TK 1 T PO M ethodi m (LEXAPRO) [address] 10 MG 00:00: Hospita tablet 00 l escitalopra Yes TK 1 T PO M ethodi m (LEXAPRO) 9-[address] 10 MG 00:00: Hospita tablet 00 l escitalopra Yes TK 1 T PO M ethodi m (LEXAPRO) [address] 10 MG 00:00: Hospita tablet [...] Comments Source Future Scheduled 2021-12-20 HE[facility]ITIS B [facility] Test 16:20:28 VACCINES (1 of 3 - 3-dose series) [code = HEPATITIS B VACCINES (1 of 3 - 3-dose series)] Future Scheduled 2021-12-20 [facility]:20[facility] (#1) [code = COVID-19 VACCINE (#1)] Future Scheduled 2021-12-20 Hepatitis C [facility] Test 16:20:28 screening (procedure) [code = 501319209] Future Scheduled 2021-12-20 Screening for [facility] Test 16:20:28 malignant neoplasm of cervix (procedure) [code = 484942823] Future Scheduled 2021-12-20 INFLUENZA VACCINE [facility] Test 16:20:28 [code = INFLUENZA VACCINE] Future Scheduled 2021-12-20 HE[facility]ITIS B [facility] Test 16:20:28 VACCINES (1 of 3 - 3-dose series) [code = HEPATITIS B VACCINES (1 of 3 - 3-dose series)] Future Scheduled 2021-12-20 [facility] 16:20:28 (#1) [code = COVID-19 VACCINE (#1)] Future Scheduled 2021-12-20 [facility]atitis [facility] Test 16:20:28 screening (procedure) [code = 248647078] Future Scheduled 2021-12-20 Screening for [facility] Test 16:20:28 malignant neoplasm of cervix (procedure) [code = 133913567] Future Scheduled 2021-12-20 INFLUENZA VACCINE [facility] 16:20:28 [code = INFLUENZA VACCINE] Future Scheduled 2021-12-20 [facility]IT[facility] 16:20:28 VACCINES (1 of 3 - 3-dose series) [code = HEPATITIS B VACCINES (1 of 3 - 3-dose series)] Future Scheduled 2021-12-20 [facility] 16:20:28 (#1) [code = COVID-19 VACCINE (#1)] Future Scheduled 2021-12-20 [facility] Test 16:20:28 screening (procedure) [code = 207027133] Future Scheduled 2021-12-20 Screening for [facility] Test 16:20:28 malignant neoplasm of cervix (procedure) [code = 354601083] Future Scheduled 2021-12-20 INFLUENZA VACCINE [facility] Test 16:20:28 [code = INFLUENZA VACCINE] Future Scheduled 2021-10-17 [facility]IT[facility] B [facility] Test 07:10:57 VACCINES (1 of 3 - 3-dose series) [code = HEPATITIS B VACCINES (1 of 3 - 3-dose series)] Future Scheduled 2021-10-17 [facility] 07:10:57 (#1) [code = COVID-19 VACCINE (#1)] Future Scheduled 2021-10-17 [facility] Test 07:10:57 screening (procedure) [code = 004613445] Future Scheduled 2021-10-17 Screening for [facility] Test 07:10:57 malignant neoplasm of cervix (procedure) [code = 465843764] Future Scheduled 2021-10-17 INFLUENZA VACCINE [facility] Test 07:10:57 [code = INFLUENZA VACCINE] Encounters Start End Encounter Admission Attending Care Care Encounter Source Date/Time Date/Time Type Type Clinicians Facility Department ID 2022-01-23 Outpatient [id number] [facility] 11:25:46 [id number] Dixon [id number] 2022-01-22 Outpatient [id number] [facility] 12:52:20 [id number] Vitaly [id number] 2022-01-19 Outpatient [id number] [facility] 07:47:03 [id number] Vitaly [id number] 2021-11-07 Outpatient [id number] [facility] 23:07:28 [id number] Vitaly [id number] 2021-07-23 2021-07-23 Outpatient [id number] [id number] PRIV [id number] [facility] 03:23:00 03:23:00 ayle_RA [id number] Medica l 2020-06-30 2020-07-04 Emergency [facility] [id number] [address] [place] [address] 00:00:00 00:00:[address]AL[address] 2019-03-08 2019-03-08 Outpatient [facility] [id number] [facility] 08:37:00 08:37:00 [facility] 2019-03-04 2019-03-04 Outpatient [facility] [id number] [facility] 14:03:00 14:03:00 [facility] 2018-05-25 2018-05-25 Outpatient [facility] [id number] [facility] 11:04:00 11:04:00 [facility] 2018-05-15 2018-05-15 Outpatient [facility] [id number] [facility] 16:02:00 16:02:00 [facility] 2017-08-01 2017-08-01 Outpatient [facility] [id number] [facility] 10:25:00 10:25:00 [facility] 2017-07-30 2017-07-30 Outpatient [facility] [id number] [facility] 20:36:00 20:36:00 [facility] 2017-07-30 2017-07-30 Outpatient [facility] [id number] [facility] 20:36:00 20:36:00 [facility] 2017-07-29 2017-07-29 Outpatient [facility] [id number] [facility] 20:56:00 20:56:00 [facility] 2017-07-29 2017-07-29 Outpatient [facility] [id number] [facility] 17:14:00 17:14:00 Medical [...] LIBAN with probe detection (test code = 54330-0) Whether patient is employed in a healthcare setting (test code = 02193-6) Whether the patient has symptoms related to condition of interest (test code = 86606-9) Patient was hospitalized because of this condition (test code = 17576-3) Whether the patient was admitted to intensive care unit (ICU) for condition of interest (test code = 69509-6) Whether patient resides in a congregate care setting (test code = 63821-7) [facility]
[2022-01-23] MEDS ORDERED: NA CHLORIDE 0.9% 1,000 ML ONE (12:24)
[2022-01-23] MEDS ORDERED: KETOROLAC 30 MG/ML INJ ONE (12:24)
[2022-01-23 12:42] LABS: Urine Bacteria <20 /HPF (<20); Urine Mucus 4+ /HPF (None Seen)
[2022-01-23] MEDS ORDERED: TAMSULOSIN 0.4 MG SR CAP ONE (12:54)
[2022-01-23] MEDS ORDERED: FENTANYL CITR 100 MCG/2 ML ONE (14:04)
--- NOTE | 2022-01-23 14:09 | ER ---
Nurse's Notes [facility] Name: Marta Perez Age: 36 yrs Sex: Female : 1985 Arrival Date: 01/23/2022 Time: 11:25 Bed 24 Private MD: Diagnosis: Renal Colic Presentation: 01/23 12:05 Chief complaint: Patient states: sharp pain in vaginal area; stated Tylenol #3 "is not vg1 helping" Was seen yesterday for kidney stones and stated "Im sure they are passing now bc the sharp pain down there happens every two minutes". Coronavirus screen: Vaccine status: Patient reports being unvaccinated. Client denies travel out of the [place] in the last 14 days. Ebola Screen: Patient negative for fever greater than or equal to 101.5 degrees Fahrenheit, and additional compatible Ebola Virus Disease symptoms. Initial Sepsis Screen: Does the patient meet any 2 criteria? No. Patient's initial sepsis screen is negative. Does the patient have a suspected source of infection? No. Patient's initial sepsis screen is negative. Risk Assessment: Do you want to hurt yourself or someone else? Patient reports no desire to harm self or others. Onset of symptoms was January 23, 2022. 12:05 Method Of Arrival: Ambulatory vg1 12:05 Acuity: SANDRA 4 vg1 12:25 Acuity: SANDRA 3 iw Triage Assessment: 12:10 General: Appears comfortable, Behavior is cooperative. Pain: Complains of pain in vg1 pelvis Pain currently is 10 out of 10 on a pain scale. GI: Abdomen is flat. : Reports burning with urination. 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 - Social history:: Smoking status: Patient denies any tobacco usage or history of. Screenin:35 Abuse screen: Denies threats or abuse. Nutritional screening: No deficits noted. em6 Tuberculosis screening: No symptoms or risk factors identified. Fall Risk Total Villatoro Fall Scale indicates No Risk (0-24 pts). Assessment: 12:34 General: Appears in no apparent distress. Behavior is cooperative. Pain: Complains of em6 pain in pelvis Pain does not radiate. Pain currently is 10 out of 10 on a pain scale. Quality of pain is described as crampy, pressure. Neuro: Level of Consciousness is awake, alert, obeys commands, Oriented to person, place, time, situation. Cardiovascular: Patient's skin is warm and dry. Respiratory: Airway is patent Respiratory effort is even, unlabored, Respiratory pattern is regular, symmetrical. GI: Abdomen is non-distended, Bowel sounds present X 4 quads. Abd is soft and non tender X 4 quads. : Reports burning with urination, cramping, urgency, urinary frequency. EENT: No signs and/or symptoms were reported regarding the EENT system. Derm: No signs and/or symptoms reported regarding the dermatologic system. Musculoskeletal: Circulation, motion, and sensation intact. Range of motion: intact in all extremities. 12:53 Reassessment: patient is stating pain in the pelvis. 10 out of 10 provider notified new em6 order given. 13:30 Reassessment: No changes from previously documented assessment. Patient and/or family em6 updated on plan of care and expected duration. Pain level reassessed. Patient is alert, oriented x 3, equal unlabored respirations, skin warm/dry/pink. 13:51 Reassessment: patient is stating pain in the lower abdomen/pelvis. notified provider no em6 new order. Vital Signs: 12:05 BP 112 / 76; Pulse 78; Resp 15; Temp 98.6; Pulse Ox 100% ; Weight 54.43 kg; Height 5 vg1 ft. 0 in. (152.40 cm); Pain 10/10; 12:30 BP 121 / 87; Pulse 69; Resp 18; Pulse Ox 100% on R/A; em6 13:15 BP 117 / 85; Pulse 63; Resp 18; Pulse Ox 100% on R/A; em6 14:32 BP 122 / 86; Pulse 68; Resp 18; Pulse Ox 100% on R/A; em6 12:05 Body Mass Index 23.44 (54.43 kg, 152.40 cm) vg1 ED Course: 11:25 Patient arrived in ED. rg4 11:43 Mickail, Dion, [facility] jmm 11:43 Chito Tay MD is Attending Physician. jmm 12:10 Triage completed. vg1 12:10 Arm band placed on. vg1 12:21 Vashti Anthony, RN is Primary Nurse. em6 12:30 Inserted saline lock: 20 gauge in right antecubital area, using aseptic technique. em6 12:36 Bed in low position. Call light in reach. Side rails up X 1. Pulse ox on. NIBP on. Warm em6 blanket given. 14:09 Mustapha Gill MD is Referral Physician. jmm 14:33 No provider procedures requiring assistance completed. IV discontinued, intact, em6 bleeding controlled, No redness/swelling at site. Pressure dressing applied. Administered Medications: 12:34 Drug: NS 0.9% 1000 ml Route: IV; Rate: 1 bolus; Site: right antecubital; em6 14:33 Follow up: Response: No adverse reaction; IV Status: Completed infusion; IV Intake: em6 1000ml 12:34 Drug: Ketorolac 30 mg Route: IVP; Site: right antecubital; em6 13:20 Follow up: Response: No adverse reaction em6 12:56 Drug: Flomax (tamsulosin) 0.4 mg Route: PO; em6 13:20 Follow up: Response: No adverse reaction em6 14:06 Drug: fentaNYL (PF) 25 mcg Route: IVP; Site: right antecubital; em6 14:33 Follow up: Response: No adverse reaction; RASS: Alert and Calm (0) em6 Medication: 14:34 VIS not applicable for this client. em6 Intake: 14:33 IV: 1000ml; Total: 1000ml. em6 Outcome: 14:09 Discharge ordered by MD. jmm 14:33 Discharged to home ambulatory. em6 14:33 Condition: stable 14:33 Discharge instructions given to patient, Instructed on discharge instructions, follow up and referral plans. medication usage, Demonstrated understanding of instructions, follow-up care, medications, Prescriptions given X 2. 14:34 Patient left the ED. em6 Signatures: Dion Parkinson PA PA jmm Williams, Irene, RN RN iw Garcia, Rubi rg4 Baylee Lujan RN RN vg1 Raj, Vashti, RN RN em6
--- NOTE | 2022-01-23 14:09 | EDPHYS ---
Physician Documentation [facility] Name: Marta Perez Age: 36 yrs Sex: Female : 1985 Arrival Date: 01/23/2022 Time: 11:25 Bed 24 Private MD: ED Physician Chito Tay HPI: 01/23 12:19 This 36 yrs old Female presents to ER via Ambulatory with complaints of Possible Kidney [facility]. 12:19 Is a 36-year-old female with history of multiple kidney stones that presents emerged [facility] part with complaints of flank pain which radiates into her vagina. Patient states every few minutes she will develop spasming. Patient is currently taking antibiotics for her urinary tract infection. States she has taken 3 doses. Was prescribed Pyridium without much relief of the dysuria. Denies vomiting.. 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 - Social history:: Smoking status: Patient denies any tobacco usage or history of. ROS: 12:19 Constitutional: Negative for fever, chills, and weight loss, Cardiovascular: Negative jmm for chest pain, palpitations, and edema, Respiratory: Negative for shortness of breath, cough, wheezing, and pleuritic chest pain. 12:19 : Positive for urinary symptoms, flank pain. 12:19 All other systems are negative. Exam: 12:19 Constitutional: This is a well developed, well nourished patient who is awake, alert, jmm and in no acute distress. Head/Face: atraumatic. Eyes: EOMI, no conjunctival erythema appreciated ENT: Moist Mucus Membranes Neck: Trachea midline, Supple Chest/axilla: Normal chest wall appearance and motion. Cardiovascular: Regular rate and rhythm. No edema appreciated Respiratory: Normal respirations, no respiratory distress appreciated Abdomen/GI: Non distended Back: Normal ROM Skin: General appearance color normal MS/ Extremity: Moves all extremities, no obvious deformities appreciated, no edema noted to the lower extremities Neuro: Awake and alert Psych: Behavior is normal, Mood is normal, Patient is cooperative and pleasant Vital Signs: 12:05 BP 112 / 76; Pulse 78; Resp 15; Temp 98.6; Pulse Ox 100% ; Weight 54.43 kg; Height 5 vg1 ft. 0 in. (152.40 cm); Pain 10/10; 12:30 BP 121 / 87; Pulse 69; Resp 18; Pulse Ox 100% on R/A; em6 13:15 BP 117 / 85; Pulse 63; Resp 18; Pulse Ox 100% on R/A; em6 14:32 BP 122 / 86; Pulse 68; Resp 18; Pulse Ox 100% on R/A; em6 12:05 Body Mass Index 23.44 (54.43 kg, 152.40 cm) vg1 MDM: 12:19 Patient medically screened. [facility] 14:09 Data reviewed: vital signs, nurses notes. Counseling: I had a detailed discussion with carlos a the patient and/or guardian regarding: the historical points, exam findings, and any diagnostic results supporting the discharge/admit diagnosis, the need for outpatient follow up, to return to the emergency department if symptoms worsen or persist or if there are any questions or concerns that arise at home. 14:09 ED course: Pain alleviated in the ED. Vital signs are normal upon discharge. Patient [facility] advised to follow-up with urology for further evaluation otherwise given strict return precautions. Patient returned agrees plan of care.. 12 12:32 Order name: Urine Microscopic Only; Complete Time: 12:43 EDMS 12 12:21 Order name: Saline Lock; Complete Time: 12:34 [facility] Administered Medications: 12:34 Drug: NS 0.9% 1000 ml Route: IV; Rate: 1 bolus; Site: right antecubital; em6 14:33 Follow up: Response: No adverse reaction; IV Status: Completed infusion; IV Intake: em6 1000ml 12:34 Drug: Ketorolac 30 mg Route: IVP; Site: right antecubital; em6 13:20 Follow up: Response: No adverse reaction em6 12:56 Drug: Flomax (tamsulosin) 0.4 mg Route: PO; em6 13:20 Follow up: Response: No adverse reaction em6 14:06 Drug: fentaNYL (PF) 25 mcg Route: IVP; Site: right antecubital; em6 14:33 Follow up: Response: No adverse reaction; RASS: Alert and Calm (0) em6 Disposition: 18:41 Co-signature as Attending Physician, Chito Tay MD. rn Disposition Summary: 01/23/22 14:09 Discharge Ordered Location: Home [facility] Condition: Stable [facility] Diagnosis - Renal Colic [facility] Followup: [facility] - With: Mustapha Gill MD - When: 2 - 3 days - Reason: Recheck today's complaints, Continuance of care, Re-evaluation by your physician Discharge Instructions: - Discharge Summary Sheet [facility] - Renal Colic [facility] Forms: - Medication Reconciliation Form [facility] - Thank You Letter [facility] - Antibiotic Education [facility] - Prescription Opioid Use [facility] Prescriptions: - Flomax 0.4 mg Oral capsule - take 1 capsule by ORAL route once daily 1/2 hour following the same meal each [facility] day; 10 capsule; Refills: 0, Product Selection Permitted - Diclofenac Sodium 75 mg Oral Tablet Sustained Release - take 1 tablet by ORAL route 2 times per day; 30 tablet; Refills: 0, Product [facility] Selection Permitted Signatures: Dispatcher [employer] EDDion Aleman PA PA jmm Nieto, Roman, MD MD rn Garcia, Victoria RN RN vg1 Vashti Anthony RN RN em6
[2022-01-23 16:59] VITALS: TEMP 98.6; O2SAT 100
[2022-01-23 17:11] VITALS: BP 122/86
== END 2022-01-23 14:34 | disposition home or self-care (01) ==
LOC: ER 11:23
DX: N23 Unspecified renal colic (principal); Z87.442 Personal history of urinary calculi
CPT/HCPCS: 81015; 96361; 96374; 96375; 99284; J3010; J7030